=== PATIENT | male | born 1990 | race African-American/Black ===

== ENCOUNTER 2018-10-03 22:33 | Emergency (ER) | payer MEDICAID, OTHER ==
[~2018-10-03] VITALS: Ht 180.3 cm; Wt 74.0 kg
[2018-10-04] MEDS ORDERED: RISPERIDONE 1MG TABLET PO STA (02:49)
[2018-10-04] MEDS ORDERED: BACITRACIN 15GM TUBE TOP ONE (03:00)
[2018-10-04 03:19] LABS: BASOPHILS % 0.5 % (0.0-2.0); EOSINOPHILS % 3.2 % (0.0-5.0); HEMATOCRIT. 38.9 % (42.0-52.0); HEMOGLOBIN. 12.7 g/dL (14.0-18.0); LYMPHOCYTES % 27.2 % (20.0-50.0); MEAN CORPUSCULAR HEMOGLOBIN 26.2 pg (28.0-32.0); MEAN CORPUSCULAR VOLUME 80.5 fL (80.0-94.0); MEAN PLATELET VOLUME 7.7 fl (7.4-10.4); MONOCYTES % 11.6 % (2.0-8.0); NEUTROPHILS % 57.5 % (40.0-76.0); PLATELET 318 x1000/uL (130-400); RED BLOOD CELL COUNT 4.84 mill/uL (4.7-6.1); RED CELL DISTRIBUTION WIDTH 14.9 % (11.6-14.6)
[2018-10-04 03:30] LABS: CHLORIDE 103 mEq/L (98-107)
[2018-10-04 03:34] LABS: ETHANOL BLOOD < 10 mg/dL
[2018-10-04 04:06] LABS: CLARITY URINE CLEAR (CLEAR); COLOR URINE YELLOW (YELLOW); KETONES URINE NEGATIVE (NEGATIVE); LEUKOCYTE ESTERASE URINE NEGATIVE (NEGATIVE); NITRITE URINE NEGATIVE (NEGATIVE); OCCULT BLOOD URINE NEGATIVE (NEGATIVE); PH URINE 6.5 (4.5-8.0); PROTEIN URINE NEGATIVE (NEGATIVE); SPECIFIC GRAVITY URINE 1.026 (1.005-1.030)
[2018-10-04 04:15] LABS: *AMPHETAMINES SCREEN URINE PRESUMTIVE POSITIVE (NEGATIVE); *BARBITURATES SCREEN URINE NEGATIVE (NEGATIVE); *BENZODIAZEPINES SCREEN URINE NEGATIVE (NEGATIVE); *COCAINE SCREEN URINE NEGATIVE (NEGATIVE)
[2018-10-04 04:16] LABS: CANNABINOID URINE SCREEN NEGATIVE (NEGATIVE); METHADONE URINE SCREEN NEGATIVE (NEGATIVE); OPIATES URINE SCREEN PRESUMTIVE POSITIVE (NEGATIVE); PHENCYCLIDINE URINE SCREEN NEGATIVE (NEGATIVE)
[2018-10-04 15:07] VITALS: BP 122/76
== END 2018-10-04 15:09 | disposition home or self-care (01) ==
LOC: ER 22:33
DX: S61.512A Laceration without foreign body of left wrist, initial encounter (principal); S60.812A Abrasion of left wrist, initial encounter; F15.129 Other stimulant abuse with intoxication, unspecified; F11.129 Opioid abuse with intoxication, unspecified; F20.9 Schizophrenia, unspecified; F12.10 Cannabis abuse, uncomplicated; Z91.14 Patient's other noncompliance with medication regimen; X83.8XXA Intentional self-harm by other specified means, initial encounter; Y93.89 Activity, other specified; Y92.018 Other place in single-family (private) house as the place of occurrence of the external cause
CPT/HCPCS: 36415; 80305; 80307; 80329; 99284

== ENCOUNTER 2018-11-17 04:24 | Emergency (ER) | payer MEDICAID ==
[~2018-11-17] VITALS: Ht 180.3 cm; Wt 74.7 kg
[2018-11-17 05:02] VITALS: BP 137/88
== END 2018-11-17 09:36 | disposition left against medical advice (07) ==
LOC: ER 04:24
DX: Z53.21 Procedure and treatment not carried out due to patient leaving prior to being seen by health care provider (principal)

== ENCOUNTER 2018-11-18 20:58 | Emergency (ER) | payer MEDICAID ==
[~2018-11-18] VITALS: Ht 180.3 cm; Wt 74.0 kg
[2018-11-19] MEDS ORDERED: BACITRACIN ZINC OINT UDPKT TOP ONE
[2018-11-19] MEDS ORDERED: IBUPROFEN 600MG TABLET PO ONE
[2018-11-19] MEDS ORDERED: LIDOCAINE 1%/EPI 1:100,000 10 ML VIAL IJ ONE
[2018-11-19] MEDS ORDERED: CEPHALEXIN 250MG CAPSULE PO ONE (00:45)
[2018-11-19] MEDS ORDERED: SULFAMETHOXAZOLE/TRIMETHOPRIM 800/160MG TABLET PO ONE (00:45)
[2018-11-19 01:01] VITALS: BP 124/68
== END 2018-11-19 01:02 | disposition home or self-care (01) ==
LOC: ER 20:58
DX: L02.413 Cutaneous abscess of right upper limb (principal); F11.10 Opioid abuse, uncomplicated; F17.210 Nicotine dependence, cigarettes, uncomplicated
CPT/HCPCS: 10060; 99284; J3490

== ENCOUNTER 2019-06-21 18:51 | Emergency (ER) | payer MEDICAID ==
[~2019-06-21] VITALS: Ht 175.3 cm; Wt 73.0 kg
[2019-06-21] MEDS ORDERED: TETANUS, DIPHTHERIA, PERTUSSIS VAC/PF 0.5ML (>7YR OLD) IM ONE (19:15)
[2019-06-21] MEDS ORDERED: BACITRACIN ZINC OINT UDPKT TOP ONE (19:15)
[2019-06-21] MEDS ORDERED: LIDOCAINE HCL/PF 1% 10 MG/ML 5ML VIAL IJ ONE (19:15)
[2019-06-21] MEDS ORDERED: CEFAZOLIN 1000MG PREMIX 50 ML IV ONE (20:30)
[2019-06-21 21:30] LABS: CLARITY URINE CLEAR (CLEAR); COLOR URINE DARK YELLOW (YELLOW); KETONES URINE TRACE (NEGATIVE); LEUKOCYTE ESTERASE URINE NEGATIVE (NEGATIVE); NITRITE URINE NEGATIVE (NEGATIVE); OCCULT BLOOD URINE NEGATIVE (NEGATIVE); PH URINE 5.5 (4.5-8.0); PROTEIN URINE NEGATIVE (NEGATIVE)
[2019-06-21 21:45] LABS: *AMPHETAMINES SCREEN URINE NEGATIVE (NEGATIVE); *BARBITURATES SCREEN URINE NEGATIVE (NEGATIVE); *BENZODIAZEPINES SCREEN URINE NEGATIVE (NEGATIVE); *COCAINE SCREEN URINE NEGATIVE (NEGATIVE); CANNABINOID URINE SCREEN NEGATIVE (NEGATIVE); METHADONE URINE SCREEN PRESUMTIVE POSITIVE (NEGATIVE)
[2019-06-21 21:46] LABS: OPIATES URINE SCREEN NEGATIVE (NEGATIVE); PHENCYCLIDINE URINE SCREEN NEGATIVE (NEGATIVE)
[2019-06-21 21:53] LABS: BASOPHILS % 0.3 % (0.0-2.0); EOSINOPHILS % 2.1 % (0.0-5.0); HEMATOCRIT. 39.1 % (42.0-52.0); HEMOGLOBIN. 12.8 g/dL (14.0-18.0); LYMPHOCYTES % 33.5 % (20.0-50.0); MEAN CORPUSCULAR HEMOGLOBIN 26.2 pg (28.0-32.0); MEAN PLATELET VOLUME 8.1 fl (7.4-10.4); MONOCYTES % 7.7 % (2.0-8.0); NEUTROPHILS % 56.4 % (40.0-76.0); PLATELET 206 x1000/uL (130-400); RED BLOOD CELL COUNT 4.89 mill/uL (4.7-6.1); RED CELL DISTRIBUTION WIDTH 18.3 % (11.6-14.6)
[2019-06-21 21:56] LABS: CHLORIDE 109 mEq/L (98-107)
[2019-06-21 22:03] LABS: ETHANOL BLOOD < 10 mg/dL
[2019-06-21] MEDS ORDERED: CEPHALEXIN 250MG CAPSULE PO ONE (22:15)
[2019-06-21] MEDS ORDERED: LORAZEPAM 1MG TABLET PO ONE (22:15)
[2019-06-22 13:00] VITALS: BP 113/85
== END 2019-06-22 13:00 | disposition home or self-care (01) ==
LOC: ER 18:51
DX: S51.812A Laceration without foreign body of left forearm, initial encounter (principal); F32.9 Major depressive disorder, single episode, unspecified; Z59.0 Homelessness; X78.8XXA Intentional self-harm by other sharp object, initial encounter; Y93.89 Activity, other specified; Y92.488 Other paved roadways as the place of occurrence of the external cause
CPT/HCPCS: 12005; 36415; 80053; 80305; 80307; 80320; 80329; 81003; 84443; 85025; 90471; 90715; 99284; J0690; J3490; Z7610; G0480

== ENCOUNTER 2019-11-16 08:07 | Emergency (ER) | payer MEDICAID ==
[~2019-11-16] VITALS: Ht 175.3 cm; Wt 80.0 kg
[2019-11-16] MEDS ORDERED: TETANUS, DIPHTHERIA, PERTUSSIS VAC/PF 0.5ML (>7YR OLD) IM ONE (08:45)
[2019-11-16] MEDS ORDERED: LIDOCAINE 1%/EPI 1:100,000 10 ML VIAL IJ ONE (08:45)
[2019-11-16] MEDS ORDERED: LIDOCAINE HCL/PF 1% 10 MG/ML 5ML VIAL IJ ONE (08:45)
[2019-11-16] MEDS ORDERED: BACITRACIN ZINC OINT UDPKT TOP ONE (08:45)
[2019-11-16 09:15] LABS: BASOPHILS % 0.4 % (0.0-2.0); EOSINOPHILS % 2.6 % (0.0-5.0); HEMATOCRIT. 35.2 % (42.0-52.0); HEMOGLOBIN. 11.7 g/dL (14.0-18.0); LYMPHOCYTES % 20.7 % (20.0-50.0); MEAN CORPUSCULAR HEMOGLOBIN 26.3 pg (28.0-32.0); MEAN CORPUSCULAR VOLUME 79.2 fL (80.0-94.0); MEAN PLATELET VOLUME 7.4 fl (7.4-10.4); MONOCYTES % 7.7 % (2.0-8.0); NEUTROPHILS % 68.6 % (40.0-76.0); PLATELET 306 x1000/uL (130-400); RED BLOOD CELL COUNT 4.45 mill/uL (4.7-6.1); RED CELL DISTRIBUTION WIDTH 15.9 % (11.6-14.6)
[2019-11-16 09:22] LABS: CHLORIDE 106 mEq/L (98-107)
[2019-11-16 09:26] LABS: ETHANOL BLOOD < 10 mg/dL
[2019-11-16] MEDS ORDERED: LORAZEPAM 1MG TABLET PO ONE ×2 (11:00→23:15)
[2019-11-16 12:06] LABS: CLARITY URINE CLEAR (CLEAR); COLOR URINE DK YELLOW (YELLOW); KETONES URINE 2+ (NEGATIVE); LEUKOCYTE ESTERASE URINE NEGATIVE (NEGATIVE); NITRITE URINE NEGATIVE (NEGATIVE); OCCULT BLOOD URINE NEGATIVE (NEGATIVE); PH URINE 6.5 (4.5-8.0); PROTEIN URINE TRACE (NEGATIVE); SPECIFIC GRAVITY URINE 1.035 (1.005-1.030)
[2019-11-16 12:24] LABS: *AMPHETAMINES SCREEN URINE PRESUMTIVE POSITIVE (NEGATIVE); *BARBITURATES SCREEN URINE NEGATIVE (NEGATIVE); *BENZODIAZEPINES SCREEN URINE NEGATIVE (NEGATIVE); *COCAINE SCREEN URINE NEGATIVE (NEGATIVE)
[2019-11-16 12:25] LABS: CANNABINOID URINE SCREEN NEGATIVE (NEGATIVE); METHADONE URINE SCREEN PRESUMTIVE POSITIVE (NEGATIVE); OPIATES URINE SCREEN PRESUMTIVE POSITIVE (NEGATIVE); PHENCYCLIDINE URINE SCREEN NEGATIVE (NEGATIVE)
[2019-11-16] MEDS ORDERED: CHLORDIAZEPOXIDE 25MG CAPSULE PO ONE (19:15)
[2019-11-17] MEDS ORDERED: LORAZEPAM 1MG TABLET PO ONE ×2 (09:00→22:15)
[2019-11-17] MEDS: LORAZEPAM 2MG/ML CPJ IM PRN ×2 (13:50→14:00)
[2019-11-18] MEDS ORDERED: LORAZEPAM 1MG TABLET PO SCH (09:00)
[2019-11-18] MEDS ORDERED: LORAZEPAM 2MG/ML CPJ IM ONE (11:45)
[2019-11-18] MEDS ORDERED: METHADONE HCL 10MG TABLET PO SCH ×2 (12:00→13:00)
[2019-11-19] MEDS: METHADONE HCL 5MG TABLET PO SCH (09:21)
[2019-11-19] MEDS: METHADONE HCL 10MG TABLET PO SCH (09:21)
[2019-11-19] MEDS ORDERED: LORAZEPAM 2MG/ML CPJ IM ONE (17:15)
[2019-11-19] MEDS ORDERED: CEPHALEXIN 250MG CAPSULE PO SCH ×2 (21:00→21:06)
[2019-11-19] MEDS ORDERED: BACITRACIN 15GM TUBE TOP ONE (21:00)
[2019-11-20] MEDS: METHADONE HCL 10MG TABLET PO SCH (10:50)
[2019-11-20] MEDS: METHADONE HCL 5MG TABLET PO SCH (10:51)
[2019-11-20 17:55] VITALS: BP 101/56
== END 2019-11-20 17:55 | disposition home or self-care (01) ==
LOC: ER 08:07
DX: S51.812A Laceration without foreign body of left forearm, initial encounter (principal); S51.811A Laceration without foreign body of right forearm, initial encounter; F15.10 Other stimulant abuse, uncomplicated; F11.10 Opioid abuse, uncomplicated; F32.9 Major depressive disorder, single episode, unspecified; F17.210 Nicotine dependence, cigarettes, uncomplicated; Z75.1 Person awaiting admission to adequate facility elsewhere; Z78.1 Physical restraint status; X99.8XXA Assault by other sharp object, initial encounter; Y93.89 Activity, other specified; Y92.018 Other place in single-family (private) house as the place of occurrence of the external cause
CPT/HCPCS: 36415; 80053; 80305; 80320; 81003; 85025; 90471; 90715; 96372; 99285; J2060; J3490; G0480

== ENCOUNTER 2023-07-20 15:32 | Emergency (ER) | payer MEDICAID, OTHER ==
[~2023-07-20] VITALS: Ht 182.9 cm; Wt 80.0 kg
[2023-07-20 15:40] VITALS: BP 131/95; PULSE 87; RESP 18; TEMP 98; O2SAT 98
[2023-07-20] MEDS ORDERED: MUPI15CR11 TP (18:20)
== END 2023-07-20 19:26 | disposition home or self-care (01) ==
LOC: ER 15:32
DX: R21 Rash and other nonspecific skin eruption (principal); F15.10 Other stimulant abuse, uncomplicated; F11.10 Opioid abuse, uncomplicated
CPT/HCPCS: 99283; Z7610

== ENCOUNTER 2024-04-15 22:51 | Emergency (ER) | payer MEDICAID, OTHER ==
[~2024-04-15] VITALS: Ht 182.9 cm; Wt 78.0 kg
[~2024-04-15 22:51] MED LIST: MUPI15CR11 TP
[2024-04-15 23:05] VITALS: O2SAT 95
[2024-04-15 23:09] VITALS: BP 121/89; PULSE 97; O2SAT 99
[2024-04-15 23:59] LABS: BASOPHILS % 0.7 % (0.0-2.0); EOSINOPHILS % 3.8 % (0.0-5.0); HEMATOCRIT. 25.2 % (42.0-52.0); HEMOGLOBIN. 7.9 g/dL (14.0-18.0); LYMPHOCYTES % 25.2 % (20.0-50.0); MEAN CORPUSCULAR HEMOGLOBIN 27.7 pg (28.0-32.0); MEAN CORPUSCULAR HGB CONC 31.5 g/dL (31.0-37.0); MEAN CORPUSCULAR VOLUME 87.7 fL (80.0-94.0); MEAN PLATELET VOLUME 6.3 fl (7.4-10.4); MONOCYTES % 9.6 % (2.0-8.0); NEUTROPHILS % 60.7 % (40.0-76.0); PLATELET 503 x1000/uL (130-400); RED BLOOD CELL COUNT 2.87 mill/uL (4.7-6.1); RED CELL DISTRIBUTION WIDTH 17.3 % (11.6-14.6); WHITE BLOOD COUNT 13.1 x1000/uL (4.5-11.0)
[2024-04-16 00:04] LABS: CARBON DIOXIDE 23 mEq/L (21-32); CHLORIDE 108 mEq/L (98-107); POTASSIUM 4.7 mEq/L (3.5-5.1); SODIUM 138 mEq/L (136-145)
[2024-04-16 00:05] LABS: CALCIUM 8.1 mg/dL (8.7-10.4)
[2024-04-16 00:10] LABS: GLUCOSE 120 mg/dL (70-105); UREA NITROGEN BLOOD 48 mg/dL (9-23)
[2024-04-16 00:12] LABS: PHOSPHORUS 6.4 mg/dL (2.5-4.9)
[2024-04-16 00:14] LABS: CREATININE 5.8 mg/dL (0.6-1.3)
[2024-04-16] MEDS: CEFTRIAXONE 1GM/50ML 50 ML IV ONE (00:45)
[2024-04-16 05:11] VITALS: RESP 16; TEMP 98.4
== END 2024-04-16 05:28 | disposition left against medical advice (07) ==
LOC: ER 22:51 → EDBEDREQSVC 04-16 03:45 → EDBEDREQ 04-16 03:45 → CMPBEDREQ 04-16 05:24 → ER 04-16 05:28
DX: T82.42XA Displacement of vascular dialysis catheter, initial encounter (principal); N18.6 End stage renal disease; F32.A Depression, unspecified; Z98.890 Other specified postprocedural states; F15.90 Other stimulant use, unspecified, uncomplicated; F12.90 Cannabis use, unspecified, uncomplicated; Y92.89 Other specified places as the place of occurrence of the external cause
CPT/HCPCS: 36415; 51702; 71045; 80048; 83735; 84100; 84145; 85025; 93005; 96365; 99285; J0696

== ENCOUNTER 2024-07-19 13:59 | Inpatient (IN) | payer MEDICAID ==
[~2024-07-19] VITALS: Ht 182.9 cm; Wt 78.0 kg
[2024-07-19 14:33] LABS: BASOPHILS % 0.4 % (0.0-2.0); DIFFERENTIAL COMMENT 0; EOSINOPHILS % 2.6 % (0.0-5.0); LYMPHOCYTES % 19.4 % (20.0-50.0); MEAN CORPUSCULAR HEMOGLOBIN 25.7 pg (28.0-32.0); MEAN CORPUSCULAR HGB CONC 31.6 g/dL (31.0-37.0); MEAN CORPUSCULAR VOLUME 81.4 fL (80.0-94.0); MEAN PLATELET VOLUME 6.6 fl (7.4-10.4); MONOCYTES % 5.6 % (2.0-8.0); PLATELET 428 x1000/uL (130-400); RED BLOOD CELL COUNT 2.66 mill/uL (4.7-6.1); RED CELL DISTRIBUTION WIDTH 18.7 % (11.6-14.6); WHITE BLOOD COUNT 11.5 x1000/uL (4.5-11.0)
[2024-07-19 14:39] LABS: CHLORIDE 111 mEq/L (98-107); POTASSIUM 5.7 mEq/L (3.5-5.1); SODIUM 138 mEq/L (136-145)
[2024-07-19 14:40] LABS: CARBON DIOXIDE 14 mEq/L (21-32)
[2024-07-19 14:41] LABS: CALCIUM 7.1 mg/dL (8.7-10.4); HEMATOCRIT. 21.7 % (42.0-52.0); HEMOGLOBIN. 6.9 g/dL (14.0-18.0)
[2024-07-19 14:45] LABS: GLUCOSE 87 mg/dL (70-105); UREA NITROGEN BLOOD 100 mg/dL (9-23)
[2024-07-19] MEDS ORDERED: INSULIN REGULAR (HUMULIN R) 1000UNITS/10ML VIAL IV ONE (14:45)
[2024-07-19] MEDS ORDERED: CALCIUM GLUCONATE 1,000 MG in DEXT 5% WATER 100 ML IV ONE (14:45)
[2024-07-19] MEDS ORDERED: SODIUM BICARBONATE 8.4% 50MEQ/50ML SYR IV ONE (14:45)
[2024-07-19] MEDS ORDERED: DEXTROSE 50% WATER 50ML SYRINGE IV ONE (14:45)
[2024-07-19 14:46] LABS: TROPONIN I HIGH SENSITIVITY 8 ng/L (3.0-53)
[2024-07-19 14:47] LABS: ALANINE AMINOTRANSFERASE 9 IU/L (10-49); ALBUMIN 2.7 g/dL (3.2-4.8); ASPARTATE AMINOTRANSFERASE 11 IU/L (<34)
[2024-07-19 14:48] LABS: BILIRUBIN TOTAL < 0.2 mg/dL (0.1-1.0); PROTEIN TOTAL 5.6 g/dL (6.0-8.3)
[2024-07-19 14:49] LABS: PROTHROMBIN TIME 11.1 sec (9.6-11.0)
[2024-07-19 14:57] LABS: BILIRUBIN DIRECT < 0.1 mg/dL (<=3.0); CREATININE 14.5 mg/dL (0.6-1.3)
[2024-07-19] MEDS ORDERED: ALBUTEROL (0.083%) 2.5MG/3ML NEB HHN SCH (15:00)
[2024-07-19 15:34] LABS: CLARITY URINE CLEAR (CLEAR); COLOR URINE YELLOW (YELLOW); GLUCOSE URINE 1+ (NEGATIVE); KETONES URINE TRACE (NEGATIVE); LEUKOCYTE ESTERASE URINE NEGATIVE (NEGATIVE); NITRITE URINE NEGATIVE (NEGATIVE); OCCULT BLOOD URINE TRACE (NEGATIVE); PH URINE 6.5 (4.5-8.0); PROTEIN URINE 4+ (NEGATIVE); SPECIFIC GRAVITY URINE 1.028 (1.005-1.030); UROBILINOGEN URINE 0.2 E.U./dL (0.2-1.0)
[2024-07-19 16:01] LABS: BACTERIA URINE 2+; SQUAMOUS EPITHELIAL CELL URINE FEW /lpf (RARE/1+)
[2024-07-19] MEDS: INSULIN REGULAR (HUMULIN R) 1000UNITS/10ML VIAL IV NR (16:45)
[2024-07-19] MEDS: DEXTROSE 50% WATER 50ML SYRINGE IV NR (16:53)
[2024-07-19] MEDS: SODIUM BICARBONATE 8.4% 50MEQ/50ML SYR IV NR (16:53)
[2024-07-19] MEDS: ALBUTEROL (0.083%) 2.5MG/3ML NEB HHN SCH (16:53)
[2024-07-19] MEDS: CALCIUM GLUCONATE 1GM PREMIX 50 ML IV SCH (16:57)
[2024-07-19 17:45] VITALS: PULSE 84; RESP 20; O2SAT 98
[2024-07-19 18:50] VITALS: BP 151/81; PULSE 86; RESP 20; TEMP 37.11408; O2SAT 99
[2024-07-19 20:00] VITALS: BP 158/101; PULSE 89; RESP 18; RESP 20; TEMP 36.22512; TEMP 36.2512; O2SAT 100
[2024-07-19] MEDS: ACETAMINOPHEN 650MG/20.3ML UDC PO PRN (20:34)
[2024-07-20] VITALS (16 sets, daily range): BP systolic 133–169; BP diastolic 79–108; PULSE 67–85; RESP 18–21; TEMP 36.33624–36.78072; O2SAT 98–100
[2024-07-20] MEDS: ACETAMINOPHEN 325MG TABLET PO PRN (06:05)
[2024-07-20] MEDS ORDERED: NALOXONE HCL 0.4MG/ML VIAL IV PRN (12:00)
[2024-07-20] MEDS: METHADONE HCL 10MG TABLET PO SCH (12:25)
[2024-07-20] MEDS: QUETIAPINE FUMARATE 50MG TABLET PO SCH (20:45)
[2024-07-20 22:02] LABS: CALCIUM 7.3 mg/dL (8.7-10.4); CARBON DIOXIDE 21 mEq/L (21-32); CHLORIDE 104 mEq/L (98-107); POTASSIUM 5.6 mEq/L (3.5-5.1); SODIUM 134 mEq/L (136-145)
[2024-07-20 22:08] LABS: GLUCOSE 98 mg/dL (70-105); IRON 54 ug/dL (65-175); TRIGLYCERIDE 96 mg/dL (0-150); UREA NITROGEN BLOOD 64 mg/dL (9-23)
[2024-07-20 22:09] LABS: LDL CHOLESTEROL 115 mg/dL (5-100)
[2024-07-20 22:10] LABS: CHOLESTEROL 200 mg/dL (<200); HDL CHOLESTEROL 56 mg/dL (>55); PHOSPHORUS 7.8 mg/dL (2.5-4.9)
[2024-07-20 22:11] LABS: TOTAL IRON BINDING CAPACITY 491 ug/dl (250-425)
[2024-07-20 22:24] LABS: BASOPHILS % 0.7 % (0.0-2.0); EOSINOPHILS % 3.8 % (0.0-5.0); LYMPHOCYTES % 22.1 % (20.0-50.0); MEAN CORPUSCULAR HEMOGLOBIN 25.4 pg (28.0-32.0); MEAN CORPUSCULAR HGB CONC 31.3 g/dL (31.0-37.0); MEAN CORPUSCULAR VOLUME 81.2 fL (80.0-94.0); MEAN PLATELET VOLUME 6.7 fl (7.4-10.4); MONOCYTES % 6.9 % (2.0-8.0); NEUTROPHILS % 66.5 % (40.0-76.0); PLATELET 363 x1000/uL (130-400); RED BLOOD CELL COUNT 2.75 mill/uL (4.7-6.1); RED CELL DISTRIBUTION WIDTH 19.5 % (11.6-14.6); WHITE BLOOD COUNT 9.8 x1000/uL (4.5-11.0)
[2024-07-20 22:39] LABS: HEMATOCRIT. 22.3 % (42.0-52.0)
[2024-07-20 22:46] LABS: CREATININE 9.8 mg/dL (0.6-1.3)
[2024-07-20] MEDS ORDERED: SODIUM POLYSTYRENE SULFONATE 15 G/60 ML BOT PO ONE (23:00)
[2024-07-20] MEDS: SODIUM ZIRCONIUM CYCLOSILICATE 10GM/PACKET PO NR (23:17)
[2024-07-21] VITALS (12 sets, daily range): BP systolic 125–158; BP diastolic 84–115; PULSE 70–92; RESP 18–20; TEMP 35.5584–37.11408; O2SAT 96–100
[2024-07-21 18:36] LABS: DIFFERENTIAL COMMENT 0; EOSINOPHILS % 4.7 % (0.0-5.0); LYMPHOCYTES % 27.4 % (20.0-50.0); MEAN CORPUSCULAR HEMOGLOBIN 26.2 pg (28.0-32.0); MEAN CORPUSCULAR HGB CONC 32.7 g/dL (31.0-37.0); MEAN CORPUSCULAR VOLUME 80.2 fL (80.0-94.0); MEAN PLATELET VOLUME 6.9 fl (7.4-10.4); MONOCYTES % 6.7 % (2.0-8.0); NEUTROPHILS % 60.2 % (40.0-76.0); PLATELET 387 x1000/uL (130-400); RED CELL DISTRIBUTION WIDTH 19.4 % (11.6-14.6)
[2024-07-21 19:02] LABS: POTASSIUM 3.5 mEq/L (3.5-5.1)
[2024-07-21 19:03] LABS: CALCIUM 7.5 mg/dL (8.7-10.4)
[2024-07-21 19:13] LABS: CREATININE 5.9 mg/dL (0.6-1.3)
[2024-07-21 19:23] LABS: HEPATITIS B SURFACE ANTIGEN NEGATIVE (Negative)
[2024-07-21 19:44] LABS: HEPATITIS A AB IGM NEGATIVE (Negative)
[2024-07-21 19:45] LABS: HEMATOCRIT. 20.9 % (42.0-52.0); HEMOGLOBIN. 6.8 g/dL (14.0-18.0); HEPATITIS B CORE AB IGM NEGATIVE (Negative); HEPATITIS C AB REACTIVE (Pos) (Negative)
[2024-07-21] MEDS: EPOETIN ALFA-EPBX 4,000 UNIT/ML VIAL SUBCUT SCH (21:49)
[2024-07-22] VITALS: BP 127/81; PULSE 89; RESP 20; TEMP 37.00296; O2SAT 97
[2024-07-22 04:00] VITALS: BP 119/77; PULSE 80; RESP 20; TEMP 37.00296; O2SAT 97
[2024-07-22 08:00] VITALS: BP 127/78; PULSE 77; RESP 18; TEMP 36.72516; O2SAT 98
[2024-07-22 11:40] LABS: BASOPHILS % 0.7 % (0.0-2.0); DIFFERENTIAL COMMENT 0; EOSINOPHILS % 3.7 % (0.0-5.0); LYMPHOCYTES % 29.8 % (20.0-50.0); MEAN CORPUSCULAR HEMOGLOBIN 25.5 pg (28.0-32.0); MEAN CORPUSCULAR VOLUME 82.5 fL (80.0-94.0); MEAN PLATELET VOLUME 6.9 fl (7.4-10.4); MONOCYTES % 7.8 % (2.0-8.0); PLATELET 340 x1000/uL (130-400); RED BLOOD CELL COUNT 2.41 mill/uL (4.7-6.1); RED CELL DISTRIBUTION WIDTH 19.5 % (11.6-14.6); WHITE BLOOD COUNT 9.3 x1000/uL (4.5-11.0)
[2024-07-22 11:50] LABS: HEMATOCRIT. 19.9 % (42.0-52.0); HEMOGLOBIN. 6.1 g/dL (14.0-18.0); POTASSIUM 4.6 mEq/L (3.5-5.1)
[2024-07-22 11:51] LABS: CALCIUM 6.9 mg/dL (8.7-10.4)
[2024-07-22 12:00] VITALS: BP 130/85; PULSE 76; RESP 18; TEMP 36.55848; O2SAT 99
[2024-07-22 12:56] LABS: CREATININE 8.6 mg/dL (0.6-1.3)
[2024-07-22 16:00] VITALS: BP 126/88; PULSE 78; RESP 18; TEMP 36.61404; O2SAT 98
[2024-07-22 16:50] LABS: POTASSIUM 4.7 mEq/L (3.5-5.1)
[2024-07-22 16:51] LABS: CALCIUM 6.9 mg/dL (8.7-10.4)
[2024-07-22 17:03] LABS: CREATININE 8.7 mg/dL (0.6-1.3)
[2024-07-22 20:00] VITALS: BP 153/103; PULSE 87; RESP 18; TEMP 38.22528; O2SAT 96
[2024-07-22] MEDS: ATORVASTATIN CALCIUM 20MG TABLET PO SCH (21:15)
[2024-07-22] MEDS: QUETIAPINE FUMARATE 50MG TABLET PO SCH (21:15)
[2024-07-23] VITALS (12 sets, daily range): BP systolic 121–152; BP diastolic 82–100; PULSE 70–84; RESP 17–19; TEMP 36.3918–38.6142; O2SAT 96–99
[2024-07-23] MEDS: METHADONE HCL 10MG TABLET PO SCH (08:34)
[2024-07-23] MEDS: METHADONE HCL 5MG TABLET PO SCH (08:35)
[2024-07-23] MEDS: CITALOPRAM HYDROBROMIDE 10MG TABLET PO SCH (08:35)
[2024-07-23 13:43] LABS: PROTHROMBIN TIME 11.1 sec (9.6-11.0)
[2024-07-23 13:44] LABS: BASOPHILS % 0.6 % (0.0-2.0); DIFFERENTIAL COMMENT 0; EOSINOPHILS % 4.1 % (0.0-5.0); LYMPHOCYTES % 27.5 % (20.0-50.0); MEAN CORPUSCULAR HEMOGLOBIN 26.4 pg (28.0-32.0); MEAN CORPUSCULAR HGB CONC 31.4 g/dL (31.0-37.0); MEAN CORPUSCULAR VOLUME 84.1 fL (80.0-94.0); MEAN PLATELET VOLUME 6.8 fl (7.4-10.4); MONOCYTES % 9.6 % (2.0-8.0); NEUTROPHILS % 58.2 % (40.0-76.0); PLATELET 322 x1000/uL (130-400); RED BLOOD CELL COUNT 2.26 mill/uL (4.7-6.1); RED CELL DISTRIBUTION WIDTH 19.4 % (11.6-14.6); WHITE BLOOD COUNT 9.5 x1000/uL (4.5-11.0)
[2024-07-23 13:50] LABS: POTASSIUM 5.1 mEq/L (3.5-5.1)
[2024-07-23 13:51] LABS: CALCIUM 7.4 mg/dL (8.7-10.4)
[2024-07-23 15:32] LABS: CREATININE 9.8 mg/dL (0.6-1.3)
[2024-07-23 20:23] LABS: ALANINE AMINOTRANSFERASE 12 IU/L (10-49); ALBUMIN 2.6 g/dL (3.2-4.8); ASPARTATE AMINOTRANSFERASE 18 IU/L (<34)
[2024-07-23 20:24] LABS: BILIRUBIN TOTAL < 0.2 mg/dL (0.1-1.0); PHOSPHORUS 7.5 mg/dL (2.5-4.9); PROTEIN TOTAL 5.1 g/dL (6.0-8.3)
[2024-07-23 20:30] LABS: BILIRUBIN DIRECT < 0.1 mg/dL (<=3.0)
[2024-07-24] VITALS: BP 131/80; PULSE 76; RESP 17; TEMP 38.16972; O2SAT 98
[2024-07-24 04:00] VITALS: BP 155/104; PULSE 69; RESP 18; TEMP 36.89184; O2SAT 98
[2024-07-24 08:00] VITALS: BP 152/91; PULSE 74; RESP 18; TEMP 36.61404; O2SAT 100
[2024-07-24] MEDS: ONDANSETRON HCL 4MG/2ML INJ IV PRN (08:09)
[2024-07-24] MEDS: SEVELAMER CARBONATE 800 MG TABLET PO SCH (08:09)
[2024-07-24 12:00] VITALS: BP 136/96; PULSE 72; RESP 18; TEMP 36.44736; O2SAT 99
[2024-07-24] MEDS: FERROUS SULFATE 325MG TABLET PO SCH (12:36)
[2024-07-24 16:00] VITALS: BP 127/91; PULSE 74; RESP 18; TEMP 36.44736; O2SAT 99
[2024-07-24 19:26] LABS: POTASSIUM 5.2 mEq/L (3.5-5.1)
[2024-07-24 19:28] LABS: BASOPHILS % 0.8 % (0.0-2.0); CALCIUM 7.4 mg/dL (8.7-10.4); DIFFERENTIAL COMMENT 0; EOSINOPHILS % 3.7 % (0.0-5.0); LYMPHOCYTES % 25.4 % (20.0-50.0); MEAN CORPUSCULAR HEMOGLOBIN 26.8 pg (28.0-32.0); MEAN CORPUSCULAR HGB CONC 32.5 g/dL (31.0-37.0); MEAN CORPUSCULAR VOLUME 82.4 fL (80.0-94.0); MEAN PLATELET VOLUME 7.4 fl (7.4-10.4); MONOCYTES % 7.9 % (2.0-8.0); NEUTROPHILS % 62.2 % (40.0-76.0); PLATELET 327 x1000/uL (130-400); RED CELL DISTRIBUTION WIDTH 19.5 % (11.6-14.6)
[2024-07-24 19:34] LABS: CREATININE 7.8 mg/dL (0.6-1.3)
[2024-07-24 19:48] LABS: HEMATOCRIT. 18.1 % (42.0-52.0); HEMOGLOBIN. 5.9 g/dL (14.0-18.0)
[2024-07-24 20:00] VITALS: BP 138/84; PULSE 80; RESP 20; TEMP 36.6696; O2SAT 95
[2024-07-25] VITALS (10 sets, daily range): BP systolic 121–148; BP diastolic 78–97; PULSE 66–88; RESP 18–20; TEMP 36.44736–37.16964; O2SAT 95–98
[2024-07-25] MEDS: DIPHENHYDRAMINE 25MG CAPSULE PO PRN (02:11)
[2024-07-25] MEDS: CITALOPRAM HYDROBROMIDE 10MG TABLET PO SCH (10:14)
[2024-07-25 13:03] LABS: BASOPHILS % 0.6 % (0.0-2.0); DIFFERENTIAL COMMENT 0; EOSINOPHILS % 4.1 % (0.0-5.0); MEAN CORPUSCULAR HEMOGLOBIN 26.5 pg (28.0-32.0); MEAN CORPUSCULAR HGB CONC 31.9 g/dL (31.0-37.0); MEAN CORPUSCULAR VOLUME 83.3 fL (80.0-94.0); MEAN PLATELET VOLUME 6.8 fl (7.4-10.4); MONOCYTES % 2.9 % (2.0-8.0); NEUTROPHILS % 81.4 % (40.0-76.0); PLATELET 353 x1000/uL (130-400); RED BLOOD CELL COUNT 2.29 mill/uL (4.7-6.1); RED CELL DISTRIBUTION WIDTH 19.4 % (11.6-14.6); WHITE BLOOD COUNT 9.3 x1000/uL (4.5-11.0)
[2024-07-25 13:09] LABS: POTASSIUM 4.1 mEq/L (3.5-5.1)
[2024-07-25 13:10] LABS: CALCIUM 7.5 mg/dL (8.7-10.4)
[2024-07-25 13:31] LABS: HEMATOCRIT. 19.1 % (42.0-52.0); HEMOGLOBIN. 6.1 g/dL (14.0-18.0)
[2024-07-25 13:35] LABS: CREATININE 6.9 mg/dL (0.6-1.3)
[2024-07-25] MEDS ORDERED: NALOXONE HCL 0.4MG/ML VIAL IV PRN (15:15)
[2024-07-26] VITALS: BP 140/82; PULSE 72; RESP 18; TEMP 37.00296; O2SAT 96
[2024-07-26 04:00] VITALS: BP 142/80; PULSE 74; RESP 19; TEMP 37.11408; O2SAT 95
[2024-07-26 08:00] VITALS: BP 142/89; PULSE 90; RESP 20; TEMP 36.50292; O2SAT 97
[2024-07-26 11:05] LABS: BASOPHILS % 0.8 % (0.0-2.0); DIFFERENTIAL COMMENT 0; EOSINOPHILS % 5.1 % (0.0-5.0); LYMPHOCYTES % 29.4 % (20.0-50.0); MEAN CORPUSCULAR HEMOGLOBIN 26.5 pg (28.0-32.0); MEAN CORPUSCULAR HGB CONC 32.2 g/dL (31.0-37.0); MEAN CORPUSCULAR VOLUME 82.3 fL (80.0-94.0); MEAN PLATELET VOLUME 6.4 fl (7.4-10.4); NEUTROPHILS % 54.7 % (40.0-76.0); PLATELET 367 x1000/uL (130-400); RED BLOOD CELL COUNT 2.25 mill/uL (4.7-6.1); WHITE BLOOD COUNT 8.2 x1000/uL (4.5-11.0)
[2024-07-26 11:25] LABS: HEMATOCRIT. 18.5 % (42.0-52.0)
[2024-07-26 11:27] LABS: POTASSIUM 4.7 mEq/L (3.5-5.1)
[2024-07-26 11:29] LABS: CALCIUM 7.6 mg/dL (8.7-10.4)
[2024-07-26 12:00] VITALS: BP 141/88; PULSE 78; RESP 20; TEMP 36.61404; O2SAT 98
[2024-07-26 12:32] LABS: CREATININE 8.3 mg/dL (0.6-1.3)
[2024-07-26 17:00] VITALS: BP 148/88; PULSE 87; RESP 20; TEMP 36.78072
[2024-07-26] MEDS: CLONIDINE 0.1MG TABLET PO PRN (17:12)
[2024-07-26 20:00] VITALS: BP 138/89; PULSE 70; RESP 20; TEMP 36.78072; O2SAT 98
[2024-07-27] VITALS (10 sets, daily range): BP systolic 114–152; BP diastolic 70–101; PULSE 67–87; RESP 17–20; TEMP 36.114–37.05852; O2SAT 95–98
[2024-07-28] VITALS (7 sets, daily range): BP systolic 137–153; BP diastolic 67–90; PULSE 68–108; RESP 16–19; TEMP 36.3918–36.72516; O2SAT 97–99
[2024-07-28] MEDS: POLYETHYLENE GLYCOL 3350 (17GM) 1 DOSE PACK PO SCH (06:55)
[2024-07-29] VITALS (7 sets, daily range): BP systolic 138–142; BP diastolic 70–102; PULSE 70–92; RESP 16–19; TEMP 36.61404–37.00296; O2SAT 98–99
[2024-07-29] MEDS: FOLIC ACID/VITAMIN B COMP W-C TABLET PO SCH (08:14)
[2024-07-29] MEDS: ALTEPLASE 2MG/VIAL ITC ONE (18:37)
[2024-07-30] VITALS (10 sets, daily range): BP systolic 129–141; BP diastolic 78–100; PULSE 72–82; RESP 16–18; TEMP 36.44736–36.89184; O2SAT 97–99
[2024-07-30] MEDS: METHADONE HCL 10MG TABLET PO SCH (13:46)
[2024-07-30] MEDS: METHADONE HCL 5MG TABLET PO SCH (13:47)
[2024-07-30 21:39] LABS: BASOPHILS % 1.6 % (0.0-2.0); EOSINOPHILS % 3.6 % (0.0-5.0); HEMATOCRIT. 27.4 % (42.0-52.0); HEMOGLOBIN. 8.6 g/dL (14.0-18.0); LYMPHOCYTES % 21.8 % (20.0-50.0); MEAN CORPUSCULAR HEMOGLOBIN 25.8 pg (28.0-32.0); MEAN CORPUSCULAR HGB CONC 31.2 g/dL (31.0-37.0); MEAN CORPUSCULAR VOLUME 82.7 fL (80.0-94.0); MONOCYTES % 7.6 % (2.0-8.0); NEUTROPHILS % 65.4 % (40.0-76.0); RED BLOOD CELL COUNT 3.32 mill/uL (4.7-6.1); RED CELL DISTRIBUTION WIDTH 18.9 % (11.6-14.6); WHITE BLOOD COUNT 13.2 x1000/uL (4.5-11.0)
[2024-07-30 21:55] LABS: DIFFERENTIAL COMMENT 1
[2024-07-30 23:04] LABS: MEAN PLATELET VOLUME 7.2 fl (7.4-10.4); PLATELET 476 x1000/uL (130-400)
[2024-07-31 20:00] VITALS: BP 128/81; PULSE 82; RESP 18; TEMP 36.05844; O2SAT 95
[2024-08-01] VITALS (10 sets, daily range): BP systolic 120–156; BP diastolic 77–110; PULSE 70–80; RESP 16–20; TEMP 36.16956–37.05852; O2SAT 96–99
[2024-08-01] MEDS ORDERED: ALTEPLASE 100MG/VIAL IV NR (20:00)
[2024-08-01] MEDS: ALTEPLASE 2MG/VIAL INJ NR (20:44)
[2024-08-02] VITALS (12 sets, daily range): BP systolic 131–169; BP diastolic 88–110; PULSE 73–94; RESP 15–18; TEMP 36.22512–37.66968; O2SAT 97–100
[2024-08-03] VITALS: BP 148/98; PULSE 89; RESP 18; TEMP 37.11408; O2SAT 98
[2024-08-03 04:00] VITALS: BP 154/107; PULSE 81; RESP 18; TEMP 37.11408; O2SAT 100
[2024-08-03 08:00] VITALS: BP 143/101; PULSE 76; RESP 20; TEMP 36.28068; O2SAT 98
[2024-08-03 12:00] VITALS: BP 139/91; PULSE 85; RESP 20; TEMP 36.61404; O2SAT 99
[2024-08-03 16:00] VITALS: BP 155/100; PULSE 111; RESP 20; TEMP 36.16956; O2SAT 99
[2024-08-03 20:00] VITALS: BP 158/114; PULSE 76; RESP 18; TEMP 37.28076; O2SAT 98
[2024-08-04] VITALS (14 sets, daily range): BP systolic 146–163; BP diastolic 96–114; PULSE 77–91; RESP 16–20; TEMP 36.22512–37.503; O2SAT 95–100
[2024-08-04] MEDS: NIFEDIPINE XL 60MG TAB PO SCH (21:30)
[2024-08-05 04:00] VITALS: BP 129/90; PULSE 97; RESP 20; TEMP 37.33632; O2SAT 96
[2024-08-05 08:00] VITALS: BP 116/76; PULSE 87; RESP 18; TEMP 36.72516; O2SAT 97
[2024-08-05] MEDS: METHADONE HCL 5MG TABLET PO SCH (09:24)
[2024-08-05] MEDS: METHADONE HCL 10MG TABLET PO SCH (09:24)
[2024-08-05 12:00] VITALS: BP 123/82; PULSE 94; RESP 18; TEMP 36.9474; O2SAT 95
[2024-08-05 16:00] VITALS: BP 119/68; PULSE 91; RESP 18; TEMP 36.89184; O2SAT 97
[2024-08-06] VITALS (11 sets, daily range): BP systolic 110–166; BP diastolic 68–116; PULSE 70–106; RESP 16–20; TEMP 36.114–36.78072; O2SAT 99–100
[2024-08-06 08:27] LABS: BASOPHILS % 0.5 % (0.0-2.0); EOSINOPHILS % 1.9 % (0.0-5.0); HEMATOCRIT. 25.4 % (42.0-52.0); HEMOGLOBIN. 7.8 g/dL (14.0-18.0); LYMPHOCYTES % 27.6 % (20.0-50.0); MEAN CORPUSCULAR HEMOGLOBIN 25.2 pg (28.0-32.0); MEAN CORPUSCULAR HGB CONC 30.7 g/dL (31.0-37.0); MEAN PLATELET VOLUME 6.7 fl (7.4-10.4); PLATELET 406 x1000/uL (130-400); RED CELL DISTRIBUTION WIDTH 20.1 % (11.6-14.6); WHITE BLOOD COUNT 13.8 x1000/uL (4.5-11.0)
[2024-08-06 08:32] LABS: CARBON DIOXIDE 23 mEq/L (21-32); CHLORIDE 103 mEq/L (98-107); POTASSIUM 5.5 mEq/L (3.5-5.1); SODIUM 136 mEq/L (136-145)
[2024-08-06 08:33] LABS: CALCIUM 8.5 mg/dL (8.7-10.4)
[2024-08-06 08:37] LABS: GLUCOSE 75 mg/dL (70-105); IRON 45 ug/dL (65-175); PROTHROMBIN TIME 11.1 sec (9.6-11.0)
[2024-08-06 08:38] LABS: UREA NITROGEN BLOOD 77 mg/dL (9-23)
[2024-08-06 08:39] LABS: ALANINE AMINOTRANSFERASE 39 IU/L (10-49); ALBUMIN 3.2 g/dL (3.2-4.8); ASPARTATE AMINOTRANSFERASE 40 IU/L (<34)
[2024-08-06 08:40] LABS: BILIRUBIN TOTAL 0.2 mg/dL (0.1-1.0); PROTEIN TOTAL 6.4 g/dL (6.0-8.3); TOTAL IRON BINDING CAPACITY 497 ug/dl (250-425)
[2024-08-06 08:41] LABS: CREATININE 11.8 mg/dL (0.6-1.3)
[2024-08-06 08:48] LABS: FOLIC ACID (FOLATE) SERUM 6.39 ng/mL (>5.38); VITAMIN B12 SERUM 291 pg/mL (211-911)
[2024-08-06 08:51] LABS: FERRITIN 315 ng/mL (22-322)
[2024-08-06] MEDS: SODIUM ZIRCONIUM CYCLOSILICATE 10GM/PACKET PO NR (09:45)
[2024-08-06] MEDS: HYDRALAZINE HCL 25MG TABLET PO SCH (16:06)
[2024-08-06] MEDS: CYANOCOBALAMIN 100MCG TABLET PO SCH (16:07)
[2024-08-07] VITALS: BP 120/78; PULSE 96; RESP 20; TEMP 37.61412; O2SAT 97
[2024-08-07 04:00] VITALS: BP 125/84; PULSE 82; RESP 19; TEMP 37.28076; O2SAT 97
[2024-08-07 08:00] VITALS: BP 137/87; PULSE 84; RESP 20; TEMP 36.6696; O2SAT 100
[2024-08-07 11:43] VITALS: BP 126/80; PULSE 85; RESP 20; TEMP 36.6696; O2SAT 100
[2024-08-07 15:58] VITALS: BP 127/80; PULSE 79; RESP 20; TEMP 36.05844; O2SAT 100
[2024-08-07 20:00] VITALS: BP 133/94; PULSE 85; RESP 19; TEMP 37.2252; O2SAT 100
[2024-08-08] VITALS (14 sets, daily range): BP systolic 108–137; BP diastolic 58–95; PULSE 80–102; RESP 15–20; TEMP 36.114–37.2252; O2SAT 95–100
[2024-08-08 18:40] LABS: BASOPHILS % 0.4 % (0.0-2.0); DIFFERENTIAL COMMENT 0; EOSINOPHILS % 1.8 % (0.0-5.0); HEMATOCRIT. 23.7 % (42.0-52.0); HEMOGLOBIN. 7.2 g/dL (14.0-18.0); LYMPHOCYTES % 20.6 % (20.0-50.0); MEAN CORPUSCULAR HEMOGLOBIN 24.8 pg (28.0-32.0); MEAN CORPUSCULAR HGB CONC 30.5 g/dL (31.0-37.0); MEAN CORPUSCULAR VOLUME 81.5 fL (80.0-94.0); MEAN PLATELET VOLUME 6.9 fl (7.4-10.4); MONOCYTES % 5.4 % (2.0-8.0); NEUTROPHILS % 71.8 % (40.0-76.0); PLATELET 374 x1000/uL (130-400); RED CELL DISTRIBUTION WIDTH 19.7 % (11.6-14.6); WHITE BLOOD COUNT 16.8 x1000/uL (4.5-11.0)
[2024-08-08 18:47] LABS: POTASSIUM 5.5 mEq/L (3.5-5.1)
[2024-08-08 18:49] LABS: CALCIUM 8.1 mg/dL (8.7-10.4)
[2024-08-08 18:56] LABS: CREATININE 11.7 mg/dL (0.6-1.3)
[2024-08-09] VITALS: BP 137/66; PULSE 103; RESP 18; TEMP 37.33632; O2SAT 97
[2024-08-09 04:00] VITALS: BP 137/88; PULSE 99; RESP 18; TEMP 37.05852; O2SAT 100
[2024-08-09 08:00] VITALS: BP 142/99; PULSE 88; RESP 18; TEMP 36.44736; O2SAT 97
[2024-08-09 12:00] VITALS: BP 132/90; PULSE 84; RESP 18; TEMP 36.44736; O2SAT 96
[2024-08-09 16:00] VITALS: BP 127/78; PULSE 90; RESP 18; TEMP 37.00296; O2SAT 95
[2024-08-09] MEDS ORDERED: CEFEPIME 1GM IN DEXT 5% 50ML IV SCH (17:00)
[2024-08-09] MEDS: CEFEPIME 1GM PREMIX 50ML IV SCH (18:00)
[2024-08-09] MEDS: LEVOFLOXACIN 250MG TABLET PO NR (18:58)
[2024-08-09] MEDS: VANCOMYCIN 1.5GM/250ML IV NR (19:40)
[2024-08-09 20:00] VITALS: BP 166/88; PULSE 99; RESP 19; TEMP 36.72516; O2SAT 96
[2024-08-09 22:46] LABS: BASOPHILS % 0.3 % (0.0-2.0); EOSINOPHILS % 1.1 % (0.0-5.0); HEMATOCRIT. 25.3 % (42.0-52.0); HEMOGLOBIN. 7.8 g/dL (14.0-18.0); LYMPHOCYTES % 14.5 % (20.0-50.0); MEAN CORPUSCULAR HEMOGLOBIN 25.3 pg (28.0-32.0); MEAN CORPUSCULAR HGB CONC 30.7 g/dL (31.0-37.0); MEAN CORPUSCULAR VOLUME 82.2 fL (80.0-94.0); MONOCYTES % 4.4 % (2.0-8.0); NEUTROPHILS % 79.7 % (40.0-76.0); PLATELET 367 x1000/uL (130-400); RED BLOOD CELL COUNT 3.08 mill/uL (4.7-6.1); RED CELL DISTRIBUTION WIDTH 20.3 % (11.6-14.6); WHITE BLOOD COUNT 25.2 x1000/uL (4.5-11.0)
[2024-08-09 22:51] LABS: CHLORIDE 101 mEq/L (98-107); POTASSIUM 5.1 mEq/L (3.5-5.1); SODIUM 135 mEq/L (136-145)
[2024-08-09 22:52] LABS: CARBON DIOXIDE 25 mEq/L (21-32)
[2024-08-10] VITALS: BP 131/83; PULSE 90; RESP 19; TEMP 36.78072; O2SAT 96
[2024-08-10 08:00] VITALS: BP 131/91; PULSE 90; RESP 20; TEMP 36.16956; O2SAT 99
[2024-08-10 12:00] VITALS: BP 142/87; PULSE 99; RESP 20; TEMP 36.28068; O2SAT 99
[2024-08-10 16:00] VITALS: BP 113/72; PULSE 101; RESP 20; TEMP 36.22512; O2SAT 99
[2024-08-10] MEDS: VANCOMYCIN 1.5GM PMX (XELLIA) 300 ML IV NR (18:00)
[2024-08-10 20:00] VITALS: BP 133/88; PULSE 82; RESP 18; TEMP 36.78072; O2SAT 96
[2024-08-11] VITALS (14 sets, daily range): BP systolic 100–148; BP diastolic 68–106; PULSE 80–113; RESP 18–20; TEMP 36.114–38.11416; O2SAT 95–100
[2024-08-11] MEDS ORDERED: LIDOCAINE HCL 1% 10 MG/ML 10ML VIAL ONE (08:05)
[2024-08-11] MEDS ORDERED: IOHEXOL-300 50 ML BOTTLE IV ONE (09:02)
[2024-08-11] MEDS: METHADONE HCL 10MG TABLET PO SCH (09:52)
[2024-08-11] MEDS: METHADONE HCL 5MG TABLET PO SCH (09:53)
[2024-08-11] MEDS ORDERED: CEFEPIME 1GM IN DEXT 5% 50ML IV SCH (11:15)
[2024-08-11 12:22] LABS: BASOPHILS % 0.2 % (0.0-2.0); EOSINOPHILS % 1.1 % (0.0-5.0); MEAN CORPUSCULAR HEMOGLOBIN 25.5 pg (28.0-32.0); MEAN CORPUSCULAR HGB CONC 31.1 g/dL (31.0-37.0); MEAN CORPUSCULAR VOLUME 81.9 fL (80.0-94.0); MONOCYTES % 4.7 % (2.0-8.0); PLATELET 397 x1000/uL (130-400); RED BLOOD CELL COUNT 2.76 mill/uL (4.7-6.1); RED CELL DISTRIBUTION WIDTH 19.6 % (11.6-14.6); WHITE BLOOD COUNT 16.1 x1000/uL (4.5-11.0)
[2024-08-11 12:23] LABS: POTASSIUM 4.6 mEq/L (3.5-5.1)
[2024-08-11 12:25] LABS: CALCIUM 8.7 mg/dL (8.7-10.4)
[2024-08-11 12:45] LABS: HEMATOCRIT. 22.6 % (42.0-52.0)
[2024-08-11 12:56] LABS: CREATININE 9.6 mg/dL (0.6-1.3)
[2024-08-11] MEDS: VANCOMYCIN 1.5GM PMX (XELLIA) 300 ML IV SCH (13:29)
[2024-08-11] MEDS: CEFEPIME 1GM/50ML 50 ML IV SCH (15:36)
[2024-08-12 04:00] VITALS: BP 118/65; PULSE 94; RESP 20; TEMP 36.78072; O2SAT 100
[2024-08-12 08:00] VITALS: BP 121/81; PULSE 91; RESP 18; TEMP 36.83628; O2SAT 96
[2024-08-12 12:00] VITALS: BP 111/73; PULSE 97; RESP 18; TEMP 37.00296; O2SAT 95
[2024-08-12 16:00] VITALS: BP 114/65; PULSE 94; RESP 18; TEMP 36.78072; O2SAT 95
[2024-08-12 20:00] VITALS: BP 118/84; PULSE 89; RESP 18; TEMP 36.89184; O2SAT 99
[2024-08-12] MEDS: EPOETIN ALFA-EPBX 4,000 UNIT/ML VIAL SUBCUT NR (21:00)
[2024-08-13] VITALS (10 sets, daily range): BP systolic 120–166; BP diastolic 68–101; PULSE 80–119; RESP 18–22; TEMP 36.00288–37.72524; O2SAT 97–100
[2024-08-13 12:42] LABS: BASOPHILS % 0.4 % (0.0-2.0); EOSINOPHILS % 1.1 % (0.0-5.0); HEMATOCRIT. 23.1 % (42.0-52.0); HEMOGLOBIN. 7.1 g/dL (14.0-18.0); LYMPHOCYTES % 14.7 % (20.0-50.0); MEAN CORPUSCULAR HEMOGLOBIN 25.1 pg (28.0-32.0); MEAN CORPUSCULAR HGB CONC 30.9 g/dL (31.0-37.0); MEAN CORPUSCULAR VOLUME 81.2 fL (80.0-94.0); MEAN PLATELET VOLUME 7.1 fl (7.4-10.4); MONOCYTES % 5.5 % (2.0-8.0); NEUTROPHILS % 78.3 % (40.0-76.0); PLATELET 385 x1000/uL (130-400); RED BLOOD CELL COUNT 2.85 mill/uL (4.7-6.1); RED CELL DISTRIBUTION WIDTH 18.9 % (11.6-14.6); WHITE BLOOD COUNT 16.2 x1000/uL (4.5-11.0)
[2024-08-13 12:52] LABS: CALCIUM 8.4 mg/dL (8.7-10.4)
[2024-08-13 13:14] LABS: CREATININE 9.7 mg/dL (0.6-1.3)
[2024-08-13] MEDS: VANCOMYCIN 500MG PREMIX 100 ML IV SCH (14:51)
[2024-08-14] VITALS: BP 123/77; PULSE 70; RESP 18; TEMP 37.39188; O2SAT 97
[2024-08-14 04:00] VITALS: BP 120/72; PULSE 72; RESP 18; TEMP 36.6696; O2SAT 98
[2024-08-14 08:00] VITALS: BP 132/92; PULSE 88; RESP 20; TEMP 36.6696; O2SAT 100
[2024-08-14 12:00] VITALS: BP 126/89; PULSE 83; RESP 18; TEMP 36.78072; O2SAT 95
[2024-08-14 16:00] VITALS: BP 153/93; PULSE 90; RESP 20; TEMP 36.6696; O2SAT 100
[2024-08-14 20:00] VITALS: BP 123/84; PULSE 91; RESP 19; TEMP 36.44736; O2SAT 95
[2024-08-15] VITALS (13 sets, daily range): BP systolic 124–168; BP diastolic 77–111; PULSE 75–107; RESP 16–19; TEMP 36.55848–40.0032; O2SAT 94–100
[2024-08-15 13:00] LABS: BASOPHILS % 0.5 % (0.0-2.0); DIFFERENTIAL COMMENT 0; EOSINOPHILS % 1.7 % (0.0-5.0); HEMATOCRIT. 23.1 % (42.0-52.0); LYMPHOCYTES % 19.1 % (20.0-50.0); MEAN CORPUSCULAR HEMOGLOBIN 24.4 pg (28.0-32.0); MEAN CORPUSCULAR HGB CONC 29.8 g/dL (31.0-37.0); MEAN CORPUSCULAR VOLUME 81.8 fL (80.0-94.0); MEAN PLATELET VOLUME 7.4 fl (7.4-10.4); MONOCYTES % 6.4 % (2.0-8.0); NEUTROPHILS % 72.3 % (40.0-76.0); PLATELET 390 x1000/uL (130-400); RED BLOOD CELL COUNT 2.83 mill/uL (4.7-6.1); RED CELL DISTRIBUTION WIDTH 18.1 % (11.6-14.6); WHITE BLOOD COUNT 12.4 x1000/uL (4.5-11.0)
[2024-08-15 13:13] LABS: HEMOGLOBIN. 6.9 g/dL (14.0-18.0)
[2024-08-15 13:17] LABS: CALCIUM 8.5 mg/dL (8.7-10.4)
[2024-08-15 14:15] LABS: CREATININE 12.2 mg/dL (0.6-1.3)
[2024-08-15 14:16] LABS: POTASSIUM 6.3 mEq/L (3.5-5.1)
[2024-08-16] VITALS (15 sets, daily range): BP systolic 124–140; BP diastolic 83–98; PULSE 76–100; RESP 16–19; TEMP 36.114–38.72532; O2SAT 96–100
[2024-08-16 21:25] LABS: CALCIUM 8.8 mg/dL (8.7-10.4)
[2024-08-16] MEDS: DOXYCYCLINE HYCLATE 100MG CAPSULE PO SCH (21:30)
[2024-08-16 21:36] LABS: CREATININE 8.3 mg/dL (0.6-1.3)
[2024-08-17] VITALS: BP 120/80; PULSE 96; RESP 18; TEMP 39.11424; O2SAT 96
[2024-08-17 03:49] LABS: POTASSIUM 5.1 mEq/L (3.5-5.1)
[2024-08-17 03:51] LABS: CALCIUM 8.3 mg/dL (8.7-10.4)
[2024-08-17 04:00] VITALS: PULSE 85; RESP 18; TEMP 38.11416; O2SAT 95
[2024-08-17 04:01] LABS: CREATININE 9.4 mg/dL (0.6-1.3)
[2024-08-17 08:00] VITALS: BP 140/102; PULSE 80; RESP 19; TEMP 36.9474; O2SAT 98
[2024-08-17] MEDS: METHADONE HCL 5MG TABLET PO SCH (10:34)
[2024-08-17] MEDS: METHADONE HCL 10MG TABLET PO SCH (10:34)
[2024-08-17 12:00] VITALS: BP 140/97; PULSE 93; RESP 19; TEMP 36.9474; O2SAT 97
[2024-08-17] MEDS: VANCOMYCIN 500MG PREMIX 100 ML IV SCH (14:55)
[2024-08-17 20:00] VITALS: BP 118/81; PULSE 85; RESP 18; TEMP 37.89192; O2SAT 96
[2024-08-17 22:01] LABS: BASOPHILS % 0.5 % (0.0-2.0); DIFFERENTIAL COMMENT 0; EOSINOPHILS % 1.6 % (0.0-5.0); LYMPHOCYTES % 19.5 % (20.0-50.0); MEAN CORPUSCULAR HEMOGLOBIN 24.7 pg (28.0-32.0); MEAN CORPUSCULAR HGB CONC 30.8 g/dL (31.0-37.0); MEAN CORPUSCULAR VOLUME 80.5 fL (80.0-94.0); MONOCYTES % 6.8 % (2.0-8.0); NEUTROPHILS % 71.6 % (40.0-76.0); PLATELET 370 x1000/uL (130-400); RED BLOOD CELL COUNT 2.59 mill/uL (4.7-6.1); RED CELL DISTRIBUTION WIDTH 18.2 % (11.6-14.6); WHITE BLOOD COUNT 15.3 x1000/uL (4.5-11.0)
[2024-08-17 22:20] LABS: HEMATOCRIT. 20.9 % (42.0-52.0); HEMOGLOBIN. 6.4 g/dL (14.0-18.0)
[2024-08-18] VITALS (15 sets, daily range): BP systolic 115–162; BP diastolic 66–109; PULSE 82–115; RESP 15–19; TEMP 36.22512–38.39196; O2SAT 95–100
[2024-08-18 01:54] LABS: IRON 13 ug/dL (65-175)
[2024-08-18 06:26] LABS: CALCIUM 8.6 mg/dL (8.7-10.4)
[2024-08-18 06:51] LABS: DIFFERENTIAL COMMENT 0; EOSINOPHILS % 2.2 % (0.0-5.0); LYMPHOCYTES % 19.2 % (20.0-50.0); MEAN CORPUSCULAR HEMOGLOBIN 24.5 pg (28.0-32.0); MEAN CORPUSCULAR HGB CONC 30.3 g/dL (31.0-37.0); MEAN CORPUSCULAR VOLUME 80.9 fL (80.0-94.0); MEAN PLATELET VOLUME 7.1 fl (7.4-10.4); MONOCYTES % 6.5 % (2.0-8.0); NEUTROPHILS % 71.1 % (40.0-76.0); PLATELET 375 x1000/uL (130-400); RED BLOOD CELL COUNT 2.54 mill/uL (4.7-6.1); RED CELL DISTRIBUTION WIDTH 17.8 % (11.6-14.6); WHITE BLOOD COUNT 13.5 x1000/uL (4.5-11.0)
[2024-08-18 07:36] LABS: POTASSIUM 6.4 mEq/L (3.5-5.1)
[2024-08-18 07:37] LABS: CREATININE 11.3 mg/dL (0.6-1.3)
[2024-08-18 08:17] LABS: HEMATOCRIT. 20.6 % (42.0-52.0); HEMOGLOBIN. 6.2 g/dL (14.0-18.0)
[2024-08-18] MEDS ORDERED: ALBUTEROL (0.5%) 2.5MG/0.5ML NEB HHN NR (09:30)
[2024-08-18] MEDS: SODIUM ZIRCONIUM CYCLOSILICATE 10GM/PACKET PO NR (09:37)
[2024-08-18] MEDS: ACETAMINOPHEN 325MG TABLET PO PRN (16:38)
[2024-08-18] MEDS: VANCOMYCIN 500MG PREMIX 100 ML IV SCH (21:08)
[2024-08-19] VITALS: BP 114/76; PULSE 97; RESP 18; TEMP 36.72516; O2SAT 100
[2024-08-19 04:00] VITALS: BP 120/77; PULSE 98; RESP 18; TEMP 36.61404; O2SAT 100
[2024-08-19 08:00] VITALS: BP 133/88; PULSE 85; RESP 18; TEMP 36.72516; O2SAT 99
[2024-08-19 12:00] VITALS: BP 118/75; PULSE 90; RESP 18; TEMP 36.44736; O2SAT 98
[2024-08-19 16:07] VITALS: BP 108/70; PULSE 81; RESP 16; TEMP 36.6696; O2SAT 98
[2024-08-19 17:01] LABS: INR 1.1; PROTHROMBIN TIME 11.9 sec (9.6-11.0)
[2024-08-19 17:03] LABS: BASOPHILS % 0.6 % (0.0-2.0); DIFFERENTIAL COMMENT 0; EOSINOPHILS % 1.6 % (0.0-5.0); LYMPHOCYTES % 17.8 % (20.0-50.0); MEAN CORPUSCULAR HEMOGLOBIN 24.3 pg (28.0-32.0); MEAN CORPUSCULAR HGB CONC 30.2 g/dL (31.0-37.0); MEAN CORPUSCULAR VOLUME 80.5 fL (80.0-94.0); MEAN PLATELET VOLUME 7.3 fl (7.4-10.4); MONOCYTES % 6.8 % (2.0-8.0); NEUTROPHILS % 73.2 % (40.0-76.0); PLATELET 370 x1000/uL (130-400); RED BLOOD CELL COUNT 2.64 mill/uL (4.7-6.1)
[2024-08-19 17:08] LABS: CHLORIDE 100 mEq/L (98-107); POTASSIUM 5.1 mEq/L (3.5-5.1); SODIUM 137 mEq/L (136-145)
[2024-08-19 17:09] LABS: CALCIUM 8.6 mg/dL (8.7-10.4); CARBON DIOXIDE 27 mEq/L (21-32)
[2024-08-19 17:12] LABS: HEMOGLOBIN. 6.4 g/dL (14.0-18.0)
[2024-08-19 17:13] LABS: HEMATOCRIT. 21.2 % (42.0-52.0)
[2024-08-19 17:14] LABS: GLUCOSE 96 mg/dL (70-105)
[2024-08-19 17:15] LABS: UREA NITROGEN BLOOD 70 mg/dL (9-23)
[2024-08-19 17:17] LABS: PHOSPHORUS 5.7 mg/dL (2.5-4.9)
[2024-08-19 17:18] LABS: CREATININE 10.1 mg/dL (0.6-1.3)
[2024-08-19 20:00] VITALS: BP 118/82; PULSE 92; RESP 19; TEMP 37.00296; O2SAT 95
[2024-08-19] MEDS: EPOETIN ALFA-EPBX 4,000 UNIT/ML VIAL SUBCUT SCH (22:28)
[2024-08-20] VITALS (15 sets, daily range): BP systolic 114–159; BP diastolic 78–100; PULSE 82–100; RESP 17–20; TEMP 36.3918–37.503; O2SAT 97–100
[2024-08-20 10:36] LABS: BASOPHILS % 0.6 % (0.0-2.0); EOSINOPHILS % 1.9 % (0.0-5.0); HEMATOCRIT. 23.2 % (42.0-52.0); HEMOGLOBIN. 7.2 g/dL (14.0-18.0); LYMPHOCYTES % 18.4 % (20.0-50.0); MEAN CORPUSCULAR HEMOGLOBIN 25.1 pg (28.0-32.0); MEAN CORPUSCULAR HGB CONC 31.2 g/dL (31.0-37.0); MEAN CORPUSCULAR VOLUME 80.6 fL (80.0-94.0); MEAN PLATELET VOLUME 7.3 fl (7.4-10.4); MONOCYTES % 6.1 % (2.0-8.0); PLATELET 362 x1000/uL (130-400); RED BLOOD CELL COUNT 2.88 mill/uL (4.7-6.1); RED CELL DISTRIBUTION WIDTH 17.6 % (11.6-14.6); WHITE BLOOD COUNT 13.2 x1000/uL (4.5-11.0)
[2024-08-20 10:39] LABS: POTASSIUM 6.1 mEq/L (3.5-5.1)
[2024-08-20 10:40] LABS: CALCIUM 8.3 mg/dL (8.7-10.4)
[2024-08-20 10:47] LABS: CREATININE 10.7 mg/dL (0.6-1.3)
[2024-08-20] MEDS: SODIUM ZIRCONIUM CYCLOSILICATE 10GM/PACKET PO NR (15:09)
[2024-08-20] MEDS: VANCOMYCIN 500MG/100ML IV NR (17:09)
[2024-08-20 21:56] LABS: POTASSIUM 4.2 mEq/L (3.5-5.1)
[2024-08-20 21:58] LABS: CALCIUM 7.9 mg/dL (8.7-10.4)
[2024-08-20 22:03] LABS: CREATININE 8.8 mg/dL (0.6-1.3)
[2024-08-21] VITALS: BP 126/86; PULSE 89; RESP 18; TEMP 36.55848; O2SAT 99
[2024-08-21 04:00] VITALS: BP 138/98; PULSE 77; RESP 18; TEMP 36.61404; O2SAT 99
[2024-08-21] MEDS: PANTOPRAZOLE 40MG DR TABLET PO NR (04:58)
[2024-08-21 05:52] LABS: CHLORIDE 101 mEq/L (98-107); POTASSIUM 4.7 mEq/L (3.5-5.1)
[2024-08-21 05:53] LABS: CARBON DIOXIDE 26 mEq/L (21-32); SODIUM 138 mEq/L (136-145)
[2024-08-21 05:54] LABS: CALCIUM 8.2 mg/dL (8.7-10.4)
[2024-08-21 05:59] LABS: GLUCOSE 82 mg/dL (70-105); UREA NITROGEN BLOOD 61 mg/dL (9-23)
[2024-08-21 06:00] LABS: TROPONIN I HIGH SENSITIVITY 21 ng/L (3.0-53)
[2024-08-21 06:02] LABS: BASOPHILS % 0.4 % (0.0-2.0); DIFFERENTIAL COMMENT 0; EOSINOPHILS % 0.6 % (0.0-5.0); HEMATOCRIT. 21.3 % (42.0-52.0); LYMPHOCYTES % 9.2 % (20.0-50.0); MEAN CORPUSCULAR HEMOGLOBIN 25.2 pg (28.0-32.0); MEAN CORPUSCULAR HGB CONC 31.6 g/dL (31.0-37.0); MEAN CORPUSCULAR VOLUME 79.9 fL (80.0-94.0); MEAN PLATELET VOLUME 7.3 fl (7.4-10.4); MONOCYTES % 6.3 % (2.0-8.0); NEUTROPHILS % 83.5 % (40.0-76.0); PLATELET 350 x1000/uL (130-400); RED BLOOD CELL COUNT 2.66 mill/uL (4.7-6.1); RED CELL DISTRIBUTION WIDTH 17.2 % (11.6-14.6); WHITE BLOOD COUNT 26.8 x1000/uL (4.5-11.0)
[2024-08-21 06:48] LABS: CREATININE 10.1 mg/dL (0.6-1.3)
[2024-08-21 06:50] LABS: HEMOGLOBIN. 6.7 g/dL (14.0-18.0)
[2024-08-21 07:55] VITALS: BP 141/89; PULSE 81; RESP 20; TEMP 36.83628; O2SAT 97
[2024-08-21 12:00] VITALS: BP 123/80; PULSE 83; RESP 18; TEMP 36.89184; O2SAT 100
[2024-08-21] MEDS: SODIUM ZIRCONIUM CYCLOSILICATE 10GM/PACKET PO NR (12:10)
[2024-08-21] MEDS ORDERED: LIDOCAINE HCL 1% 10 MG/ML 10ML VIAL ONE (13:05)
[2024-08-21 16:30] VITALS: BP 139/83; PULSE 86; RESP 17; TEMP 36.72516; O2SAT 97
[2024-08-21 18:37] LABS: HEPATITIS B SURFACE AB 134.9 mIU/mL (<10)
[2024-08-21 18:49] LABS: HEPATITIS B SURFACE ANTIGEN NEGATIVE (Negative)
[2024-08-21 19:11] LABS: HEPATITIS B CORE AB IGM NEGATIVE (Negative)
[2024-08-21 20:00] VITALS: BP 129/92; PULSE 75; RESP 18; TEMP 36.55848; O2SAT 99
[2024-08-22] VITALS: BP 113/74; PULSE 89; RESP 18; TEMP 36.55848; O2SAT 99
[2024-08-22 04:00] VITALS: BP 118/76; PULSE 87; RESP 17; TEMP 36.55848; O2SAT 99
[2024-08-22 05:58] LABS: POTASSIUM 4.8 mEq/L (3.5-5.1)
[2024-08-22 06:26] LABS: BASOPHILS % 0.7 % (0.0-2.0); EOSINOPHILS % 2.1 % (0.0-5.0); HEMATOCRIT. 22.8 % (42.0-52.0); HEMOGLOBIN. 7.4 g/dL (14.0-18.0); LYMPHOCYTES % 17.6 % (20.0-50.0); MEAN CORPUSCULAR HGB CONC 32.4 g/dL (31.0-37.0); MEAN CORPUSCULAR VOLUME 80.2 fL (80.0-94.0); MEAN PLATELET VOLUME 7.4 fl (7.4-10.4); MONOCYTES % 6.3 % (2.0-8.0); NEUTROPHILS % 73.3 % (40.0-76.0); PLATELET 372 x1000/uL (130-400); RED BLOOD CELL COUNT 2.84 mill/uL (4.7-6.1); RED CELL DISTRIBUTION WIDTH 17.7 % (11.6-14.6); WHITE BLOOD COUNT 17.8 x1000/uL (4.5-11.0)
[2024-08-22 06:27] LABS: CREATININE 11.9 mg/dL (0.6-1.3)
[2024-08-22] MEDS: PANTOPRAZOLE 40MG DR TABLET PO SCH (06:29)
[2024-08-22 08:09] VITALS: BP 145/90; PULSE 89; RESP 16; TEMP 36.89184; O2SAT 99
[2024-08-22 12:00] VITALS: BP 150/88; PULSE 91; RESP 18; TEMP 37.11408; O2SAT 100
[2024-08-22 16:00] VITALS: BP 147/81; PULSE 96; RESP 19; TEMP 36.9474; O2SAT 97
[2024-08-22 20:00] VITALS: BP 144/102; PULSE 75; RESP 17; TEMP 36.50292; O2SAT 98
[2024-08-23] VITALS (7 sets, daily range): BP systolic 137–151; BP diastolic 97–110; PULSE 67–74; RESP 17–18; TEMP 36.44736–36.72516; O2SAT 98–100
[2024-08-23] MEDS: DIPHENHYDRAMINE 25MG CAPSULE PO PRN (03:09)
[2024-08-23 07:23] LABS: POTASSIUM 5.1 mEq/L (3.5-5.1)
[2024-08-23 07:24] LABS: EOSINOPHILS % 2.4 % (0.0-5.0); HEMATOCRIT. 22.8 % (42.0-52.0); HEMOGLOBIN. 7.2 g/dL (14.0-18.0); LYMPHOCYTES % 22.7 % (20.0-50.0); MEAN CORPUSCULAR HEMOGLOBIN 25.5 pg (28.0-32.0); MEAN CORPUSCULAR HGB CONC 31.6 g/dL (31.0-37.0); MEAN CORPUSCULAR VOLUME 80.7 fL (80.0-94.0); MEAN PLATELET VOLUME 7.5 fl (7.4-10.4); MONOCYTES % 6.5 % (2.0-8.0); NEUTROPHILS % 67.4 % (40.0-76.0); PLATELET 350 x1000/uL (130-400); RED BLOOD CELL COUNT 2.82 mill/uL (4.7-6.1); RED CELL DISTRIBUTION WIDTH 17.2 % (11.6-14.6); WHITE BLOOD COUNT 13.1 x1000/uL (4.5-11.0)
[2024-08-23 07:25] LABS: CALCIUM 8.1 mg/dL (8.7-10.4)
[2024-08-23 07:31] LABS: CREATININE 12.9 mg/dL (0.6-1.3)
[2024-08-23] MEDS ORDERED: ALBUTEROL (0.5%) 2.5MG/0.5ML NEB HHN NR (09:15)
[2024-08-23] MEDS: SODIUM ZIRCONIUM CYCLOSILICATE 10GM/PACKET PO NR (09:59)
[2024-08-23] MEDS: VANCOMYCIN 500MG PREMIX 100 ML IV SCH (21:23)
[2024-08-23] MEDS: ZOLPIDEM TARTRATE 5MG TABLET PO PRN (22:33)
[2024-08-23] MEDS: CLONIDINE 0.1MG TABLET PO PRN (22:42)
[2024-08-24 08:00] VITALS: BP 152/108; PULSE 76; TEMP 36.83628
[2024-08-24 08:11] LABS: CA 19-9 < 2 U/mL (0-35)
[2024-08-24 10:34] LABS: BASOPHILS % 0.9 % (0.0-2.0); EOSINOPHILS % 2.3 % (0.0-5.0); HEMATOCRIT. 25.3 % (42.0-52.0); HEMOGLOBIN. 7.9 g/dL (14.0-18.0); LYMPHOCYTES % 21.5 % (20.0-50.0); MEAN CORPUSCULAR HEMOGLOBIN 25.1 pg (28.0-32.0); MEAN CORPUSCULAR HGB CONC 31.2 g/dL (31.0-37.0); MEAN CORPUSCULAR VOLUME 80.7 fL (80.0-94.0); MEAN PLATELET VOLUME 7.3 fl (7.4-10.4); MONOCYTES % 4.5 % (2.0-8.0); NEUTROPHILS % 70.8 % (40.0-76.0); PLATELET 447 x1000/uL (130-400); RED BLOOD CELL COUNT 3.14 mill/uL (4.7-6.1); RED CELL DISTRIBUTION WIDTH 18.1 % (11.6-14.6)
[2024-08-24 10:42] LABS: POTASSIUM 5.9 mEq/L (3.5-5.1)
[2024-08-24 10:43] LABS: CALCIUM 8.2 mg/dL (8.7-10.4)
[2024-08-24 11:14] LABS: CREATININE 14.1 mg/dL (0.6-1.3)
[2024-08-24 12:00] VITALS: BP 127/98; PULSE 76; RESP 18; TEMP 36.72516; O2SAT 97
[2024-08-24 18:00] VITALS: BP 132/96; PULSE 72; RESP 18; TEMP 36.78072; O2SAT 97
[2024-08-24 20:00] VITALS: BP 125/81; PULSE 93; RESP 18; TEMP 36.50292; O2SAT 98
[2024-08-25] VITALS (16 sets, daily range): BP systolic 114–151; BP diastolic 70–93; PULSE 78–94; RESP 12–20; TEMP 36.50292–37.11408; O2SAT 93–99
[2024-08-25] MEDS: SODIUM BICARBONATE 8.4% 50MEQ/50ML SYR IV NR (07:43)
[2024-08-25] MEDS: INSULIN REGULAR (HUMULIN R) 1000UNITS/10ML VIAL IV NR (07:45)
[2024-08-25] MEDS: DEXTROSE 50% WATER 50ML SYRINGE IV NR (07:48)
[2024-08-25] MEDS: SODIUM ZIRCONIUM CYCLOSILICATE 10GM/PACKET PO NR ×2 (07:49→16:41)
[2024-08-25 10:19] LABS: EOSINOPHILS % 3.5 % (0.0-5.0); HEMATOCRIT. 30.6 % (42.0-52.0); HEMOGLOBIN. 9.5 g/dL (14.0-18.0); MEAN CORPUSCULAR HEMOGLOBIN 25.4 pg (28.0-32.0); MEAN CORPUSCULAR HGB CONC 31.2 g/dL (31.0-37.0); MEAN CORPUSCULAR VOLUME 81.3 fL (80.0-94.0); MEAN PLATELET VOLUME 7.3 fl (7.4-10.4); MONOCYTES % 4.8 % (2.0-8.0); NEUTROPHILS % 59.7 % (40.0-76.0); PLATELET 504 x1000/uL (130-400); RED BLOOD CELL COUNT 3.76 mill/uL (4.7-6.1); RED CELL DISTRIBUTION WIDTH 17.8 % (11.6-14.6); WHITE BLOOD COUNT 10.4 x1000/uL (4.5-11.0)
[2024-08-25 10:26] LABS: CALCIUM 8.4 mg/dL (8.7-10.4); POTASSIUM 5.6 mEq/L (3.5-5.1)
[2024-08-25] MEDS ORDERED: LIDOCAINE HCL 1% 10 MG/ML 10ML VIAL ONE (11:09)
[2024-08-25] MEDS ORDERED: MIDAZOLAM HCL 2 MG/2 ML VIAL ONE (11:21)
[2024-08-25] MEDS ORDERED: FENTANYL CITRATE/PF 50MCG/ML 2ML VIAL ONE (11:21)
[2024-08-25] MEDS: MIDAZOLAM HCL 2 MG/2 ML VIAL IV ONE (11:30)
[2024-08-25] MEDS: FENTANYL CITRATE/PF 50MCG/ML 2ML VIAL IV ONE (11:30)
[2024-08-25] MEDS: TRAZODONE HCL 50MG TABLET PO SCH (21:10)
[2024-08-26] VITALS (13 sets, daily range): BP systolic 139–175; BP diastolic 84–106; PULSE 70–91; RESP 16–17; TEMP 36.6696–36.78072; O2SAT 97–99
[2024-08-26] MEDS: VANCOMYCIN 750MG/150ML (BAXTER) IV SCH (16:33)
[2024-08-27] VITALS (7 sets, daily range): BP systolic 121–137; BP diastolic 78–97; PULSE 75–80; RESP 18–19; TEMP 36.50292–38.50308; O2SAT 18–100
[2024-08-28] VITALS (11 sets, daily range): BP systolic 116–138; BP diastolic 74–89; PULSE 71–92; RESP 16–20; TEMP 35.66952–36.6696; O2SAT 76–99
[2024-08-28] MEDS: VANCOMYCIN 500MG/100ML IV NR (23:01)
[2024-08-29] VITALS: BP 124/86; PULSE 84; RESP 18; TEMP 37.72524; O2SAT 95
[2024-08-29 01:42] LABS: EOSINOPHILS % 4.4 % (0.0-5.0); HEMATOCRIT. 23.4 % (42.0-52.0); HEMOGLOBIN. 7.6 g/dL (14.0-18.0); LYMPHOCYTES % 26.6 % (20.0-50.0); MEAN CORPUSCULAR HEMOGLOBIN 26.3 pg (28.0-32.0); MEAN CORPUSCULAR HGB CONC 32.6 g/dL (31.0-37.0); MEAN CORPUSCULAR VOLUME 80.9 fL (80.0-94.0); MEAN PLATELET VOLUME 6.8 fl (7.4-10.4); MONOCYTES % 6.6 % (2.0-8.0); NEUTROPHILS % 61.4 % (40.0-76.0); PLATELET 378 x1000/uL (130-400); RED CELL DISTRIBUTION WIDTH 18.7 % (11.6-14.6); WHITE BLOOD COUNT 10.3 x1000/uL (4.5-11.0)
[2024-08-29 01:47] LABS: POTASSIUM 4.2 mEq/L (3.5-5.1)
[2024-08-29 01:48] LABS: CALCIUM 8.6 mg/dL (8.7-10.4)
[2024-08-29 03:18] LABS: CREATININE 11.7 mg/dL (0.6-1.3)
[2024-08-29 08:00] VITALS: BP 138/92; PULSE 76; RESP 20; TEMP 37.00296; O2SAT 97
[2024-08-29 12:00] VITALS: BP 140/96; PULSE 77; RESP 20; TEMP 37.00296; O2SAT 97
[2024-08-29] MEDS: SEVELAMER CARBONATE 800 MG TABLET PO SCH (14:30)
[2024-08-29 20:00] VITALS: BP 129/89; PULSE 85; RESP 20; TEMP 37.61412; O2SAT 100
[2024-08-29 22:52] LABS: PHOSPHORUS 7.5 mg/dL (2.5-4.9)
[2024-08-30 08:00] VITALS: BP 145/91; PULSE 79; RESP 19; TEMP 36.72516; O2SAT 99
[2024-08-30 12:00] VITALS: BP 149/92; PULSE 68; RESP 20; TEMP 36.3918; O2SAT 98
[2024-08-30 16:00] VITALS: BP 123/74; PULSE 81; RESP 20; TEMP 35.66952; O2SAT 99
[2024-08-30 20:00] VITALS: BP 121/83; PULSE 77; RESP 20; TEMP 36.50292; O2SAT 97
[2024-08-31 08:00] VITALS: BP 142/102; PULSE 69; RESP 16; TEMP 36.72516; O2SAT 99
[2024-08-31] MEDS: SEVELAMER CARBONATE 800 MG TABLET PO SCH (08:28)
[2024-08-31] MEDS: LACTOBACILLUS GG CAPSULE PO SCH (09:00)
[2024-08-31 10:26] VITALS: BP 128/87; PULSE 78
[2024-08-31] MEDS ORDERED: METHADONE HCL 5MG/5ML ORAL SOLN UDC PO SCH (11:45)
[2024-08-31 12:00] VITALS: BP 134/82; PULSE 80; RESP 18; TEMP 36.61404
[2024-08-31] MEDS: METHADONE HCL 10MG TABLET PO SCH (12:37)
[2024-08-31] MEDS: METHADONE HCL 5MG TABLET PO SCH (12:52)
[2024-08-31] MEDS: VANCOMYCIN 500MG PREMIX 100 ML IV SCH (15:00)
[2024-08-31 16:00] VITALS: BP 139/86; PULSE 77; RESP 16; TEMP 36.72516
[2024-08-31 20:00] VITALS: BP 110/78; PULSE 74; RESP 18; TEMP 36.83628
[2024-08-31] MEDS: IOHEXOL-350 100 ML BOTTLE ONE (21:53)
[2024-09-01] VITALS (15 sets, daily range): BP systolic 101–132; BP diastolic 70–93; PULSE 72–102; RESP 16–20; TEMP 36.33624–37.2252; O2SAT 98–100
[2024-09-02 04:00] VITALS: BP 136/94; PULSE 71; RESP 19; TEMP 36.78072; O2SAT 98
[2024-09-02 08:00] VITALS: BP 143/99; PULSE 74; RESP 20; TEMP 36.55848; O2SAT 100
[2024-09-02 12:00] VITALS: BP 152/101; PULSE 66; RESP 18; TEMP 36.28068; O2SAT 100
[2024-09-02 16:00] VITALS: BP 129/87; PULSE 71; RESP 20; TEMP 36.55848; O2SAT 97
[2024-09-03] VITALS (11 sets, daily range): BP systolic 108–179; BP diastolic 69–111; PULSE 65–84; RESP 16–20; TEMP 36.50292–37.2252; O2SAT 97–100
[2024-09-03 13:57] LABS: TROPONIN I HIGH SENSITIVITY 18 ng/L (3.0-53)
[2024-09-03] MEDS: VANCOMYCIN 750MG PMX (XELLIA) 150 ML IV NR (17:47)
[2024-09-03 22:29] LABS: TROPONIN I HIGH SENSITIVITY 17 ng/L (3.0-53)
[2024-09-04 04:00] VITALS: BP 145/94; PULSE 78; RESP 20; TEMP 36.72516; O2SAT 99
[2024-09-04 08:00] VITALS: BP 167/108; PULSE 76; RESP 20; TEMP 36.78072; O2SAT 100
[2024-09-04 11:25] LABS: BASOPHILS % 0.9 % (0.0-2.0); EOSINOPHILS % 3.2 % (0.0-5.0); HEMATOCRIT. 22.9 % (42.0-52.0); HEMOGLOBIN. 7.2 g/dL (14.0-18.0); LYMPHOCYTES % 21.6 % (20.0-50.0); MEAN CORPUSCULAR HEMOGLOBIN 25.8 pg (28.0-32.0); MEAN CORPUSCULAR HGB CONC 31.5 g/dL (31.0-37.0); MEAN CORPUSCULAR VOLUME 81.9 fL (80.0-94.0); MEAN PLATELET VOLUME 7.6 fl (7.4-10.4); MONOCYTES % 6.5 % (2.0-8.0); NEUTROPHILS % 67.8 % (40.0-76.0); PLATELET 286 x1000/uL (130-400); RED CELL DISTRIBUTION WIDTH 17.8 % (11.6-14.6); WHITE BLOOD COUNT 9.9 x1000/uL (4.5-11.0)
[2024-09-04 11:31] LABS: POTASSIUM 4.7 mEq/L (3.5-5.1)
[2024-09-04 11:45] LABS: CREATININE 12.2 mg/dL (0.6-1.3)
[2024-09-04 12:00] VITALS: BP 152/100; PULSE 74; RESP 20; TEMP 36.22512; O2SAT 100
[2024-09-04 16:00] VITALS: BP 135/90; PULSE 78; RESP 20; TEMP 36.78072; O2SAT 99
[2024-09-04 20:12] VITALS: BP 158/99; PULSE 66; RESP 20; TEMP 36.33624; O2SAT 100
[2024-09-04] MEDS: VANCOMYCIN 750MG PMX (XELLIA) 150 ML IV NR (21:34)
[2024-09-05] VITALS (15 sets, daily range): BP systolic 138–174; BP diastolic 98–126; PULSE 58–75; RESP 17–20; TEMP 36.28068–37.05852; O2SAT 97–100
[2024-09-05 10:20] LABS: CALCIUM 8.6 mg/dL (8.7-10.4)
[2024-09-05 10:27] LABS: CREATININE 15.7 mg/dL (0.6-1.3)
[2024-09-05 10:44] LABS: BASOPHILS % 1.3 % (0.0-2.0); EOSINOPHILS % 5.7 % (0.0-5.0); HEMATOCRIT. 22.4 % (42.0-52.0); LYMPHOCYTES % 28.4 % (20.0-50.0); MEAN CORPUSCULAR HEMOGLOBIN 25.3 pg (28.0-32.0); MEAN CORPUSCULAR VOLUME 81.5 fL (80.0-94.0); MEAN PLATELET VOLUME 8.1 fl (7.4-10.4); MONOCYTES % 8.2 % (2.0-8.0); NEUTROPHILS % 56.4 % (40.0-76.0); PLATELET 275 x1000/uL (130-400); RED BLOOD CELL COUNT 2.76 mill/uL (4.7-6.1); RED CELL DISTRIBUTION WIDTH 17.5 % (11.6-14.6); WHITE BLOOD COUNT 8.2 x1000/uL (4.5-11.0)
[2024-09-05] MEDS: VANCOMYCIN 750MG PMX (XELLIA) 150 ML IV SCH (21:29)
[2024-09-06 04:00] VITALS: BP 155/110; PULSE 90; RESP 19; TEMP 36.83628; O2SAT 97
[2024-09-06 08:00] VITALS: BP 160/100; PULSE 80; RESP 18; TEMP 36.78072; O2SAT 98
[2024-09-06] MEDS ORDERED: METHADONE HCL 5MG TABLET PO ONE (11:00)
[2024-09-06] MEDS ORDERED: METHADONE HCL 10MG TABLET PO ONE (11:00)
[2024-09-06] MEDS: METHADONE HCL 5MG TABLET PO SCH (11:18)
[2024-09-06] MEDS: METHADONE HCL 10MG TABLET PO SCH (11:18)
[2024-09-06 12:00] VITALS: BP 160/99; PULSE 86; RESP 20; TEMP 36.6696; O2SAT 96
[2024-09-06 16:00] VITALS: BP 150/100; PULSE 84; RESP 16; TEMP 36.55848; O2SAT 97
[2024-09-07] VITALS (12 sets, daily range): BP systolic 128–174; BP diastolic 96–112; PULSE 67–77; RESP 16–20; TEMP 36.114–37.00296; O2SAT 94–100
[2024-09-07 09:57] LABS: BASOPHILS % 1.7 % (0.0-2.0); DIFFERENTIAL COMMENT 0; EOSINOPHILS % 6.9 % (0.0-5.0); LYMPHOCYTES % 39.2 % (20.0-50.0); MEAN CORPUSCULAR HEMOGLOBIN 25.9 pg (28.0-32.0); MEAN CORPUSCULAR HGB CONC 27.9 g/dL (31.0-37.0); MEAN CORPUSCULAR VOLUME 92.5 fL (80.0-94.0); MEAN PLATELET VOLUME 7.8 fl (7.4-10.4); NEUTROPHILS % 43.2 % (40.0-76.0); PLATELET 135 x1000/uL (130-400); RED BLOOD CELL COUNT 1.58 mill/uL (4.7-6.1); RED CELL DISTRIBUTION WIDTH 17.6 % (11.6-14.6); WHITE BLOOD COUNT 4.3 x1000/uL (4.5-11.0)
[2024-09-07 10:09] LABS: HEMATOCRIT. 14.6 % (42.0-52.0); HEMOGLOBIN. 4.1 g/dL (14.0-18.0)
[2024-09-07 10:19] LABS: CREATININE 11.6 mg/dL (0.6-1.3)
[2024-09-07 10:22] LABS: CALCIUM 5.2 mg/dL (8.7-10.4)
[2024-09-07 11:59] LABS: IRON < 5 ug/dL (65-175); TOTAL IRON BINDING CAPACITY 235 ug/dl (250-425)
[2024-09-07 12:20] LABS: FOLIC ACID (FOLATE) SERUM 19.18 ng/mL (>5.38); VITAMIN B12 SERUM 651 pg/mL (211-911)
[2024-09-07] MEDS: CYANOCOBALAMIN 1000MCG/ML VIAL IM NR (14:14)
[2024-09-07] MEDS: VANCOMYCIN 750MG PREMIX 150 ML IV SCH (21:34)
[2024-09-08] VITALS (11 sets, daily range): BP systolic 138–166; BP diastolic 67–110; PULSE 65–70; RESP 16–20; TEMP 35.78064–36.83628; O2SAT 94–100
[2024-09-08] MEDS: CLONIDINE 0.1MG TABLET PO PRN (01:38)
[2024-09-08] MEDS ORDERED: ALBUTEROL (0.5%) 2.5MG/0.5ML NEB HHN NR (05:00)
[2024-09-08] MEDS: SODIUM ZIRCONIUM CYCLOSILICATE 10GM/PACKET PO NR (06:25)
[2024-09-08 06:45] LABS: BASOPHILS % 1.5 % (0.0-2.0); EOSINOPHILS % 6.5 % (0.0-5.0); HEMATOCRIT. 26.1 % (42.0-52.0); HEMOGLOBIN. 8.2 g/dL (14.0-18.0); LYMPHOCYTES % 31.8 % (20.0-50.0); MEAN CORPUSCULAR HEMOGLOBIN 26.1 pg (28.0-32.0); MEAN CORPUSCULAR HGB CONC 31.5 g/dL (31.0-37.0); MEAN CORPUSCULAR VOLUME 82.8 fL (80.0-94.0); MEAN PLATELET VOLUME 8.1 fl (7.4-10.4); MONOCYTES % 8.9 % (2.0-8.0); NEUTROPHILS % 51.3 % (40.0-76.0); PLATELET 238 x1000/uL (130-400); RED BLOOD CELL COUNT 3.15 mill/uL (4.7-6.1); RED CELL DISTRIBUTION WIDTH 17.1 % (11.6-14.6); WHITE BLOOD COUNT 7.8 x1000/uL (4.5-11.0)
[2024-09-08 07:28] LABS: POTASSIUM 5.4 mEq/L (3.5-5.1)
[2024-09-08 07:29] LABS: CALCIUM 8.9 mg/dL (8.7-10.4)
[2024-09-08 08:24] LABS: CREATININE 11.6 mg/dL (0.6-1.3)
[2024-09-08] MEDS: AMLODIPINE 5MG TABLET PO SCH ×2 (09:10→20:57)
[2024-09-08] MEDS: TRAZODONE HCL 50MG TABLET PO SCH (20:56)
[2024-09-09] VITALS (14 sets, daily range): BP systolic 118–145; BP diastolic 82–102; PULSE 63–82; RESP 15–18; TEMP 36.55848–36.78072; O2SAT 96–100
[2024-09-10 04:00] VITALS: BP 145/103; PULSE 73; RESP 18; TEMP 36.44736; O2SAT 95
[2024-09-10 08:00] VITALS: BP 146/100; PULSE 74; RESP 16; TEMP 36.6696; O2SAT 97
[2024-09-10 12:00] VITALS: BP 156/104; PULSE 78; RESP 18; TEMP 36.89184; O2SAT 98
[2024-09-10] MEDS: VANCOMYCIN 500MG/100ML IV NR (12:11)
[2024-09-10 13:27] LABS: BASOPHILS % 0.9 % (0.0-2.0); EOSINOPHILS % 6.1 % (0.0-5.0); HEMOGLOBIN. 7.2 g/dL (14.0-18.0); LYMPHOCYTES % 35.1 % (20.0-50.0); MEAN CORPUSCULAR HEMOGLOBIN 25.5 pg (28.0-32.0); MEAN CORPUSCULAR HGB CONC 31.3 g/dL (31.0-37.0); MEAN CORPUSCULAR VOLUME 81.7 fL (80.0-94.0); MEAN PLATELET VOLUME 8.4 fl (7.4-10.4); MONOCYTES % 7.6 % (2.0-8.0); NEUTROPHILS % 50.3 % (40.0-76.0); PLATELET 77 x1000/uL (130-400); RED BLOOD CELL COUNT 2.81 mill/uL (4.7-6.1); RED CELL DISTRIBUTION WIDTH 16.9 % (11.6-14.6); WHITE BLOOD COUNT 5.5 x1000/uL (4.5-11.0)
[2024-09-10 16:00] VITALS: BP 148/100; PULSE 70; RESP 16; TEMP 36.78072; O2SAT 99
[2024-09-10 20:00] VITALS: BP 131/89; PULSE 72; RESP 18; TEMP 36.114; O2SAT 96
[2024-09-11 04:00] VITALS: BP 136/97; PULSE 87; RESP 18; TEMP 36.114; O2SAT 95
[2024-09-11 08:00] VITALS: BP 138/97; PULSE 71; RESP 18; TEMP 36.16956; O2SAT 100
[2024-09-11 12:00] VITALS: BP 122/82; PULSE 69; RESP 19; TEMP 36.114; O2SAT 98
[2024-09-11 12:41] LABS: BASOPHILS % 1.2 % (0.0-2.0); EOSINOPHILS % 6.8 % (0.0-5.0); HEMATOCRIT. 24.6 % (42.0-52.0); HEMOGLOBIN. 7.8 g/dL (14.0-18.0); LYMPHOCYTES % 33.5 % (20.0-50.0); MEAN CORPUSCULAR HEMOGLOBIN 26.1 pg (28.0-32.0); MEAN CORPUSCULAR HGB CONC 31.6 g/dL (31.0-37.0); MEAN CORPUSCULAR VOLUME 82.5 fL (80.0-94.0); MONOCYTES % 9.4 % (2.0-8.0); NEUTROPHILS % 49.1 % (40.0-76.0); RED BLOOD CELL COUNT 2.98 mill/uL (4.7-6.1); WHITE BLOOD COUNT 8.5 x1000/uL (4.5-11.0)
[2024-09-11 12:56] LABS: DIFFERENTIAL COMMENT 1
[2024-09-11 13:02] LABS: POTASSIUM 4.4 mEq/L (3.5-5.1)
[2024-09-11 13:04] LABS: CALCIUM 7.4 mg/dL (8.7-10.4)
[2024-09-11 13:11] LABS: CREATININE 12.3 mg/dL (0.6-1.3)
[2024-09-11 16:00] VITALS: BP 120/82; PULSE 70; RESP 18; TEMP 36.114; O2SAT 97
[2024-09-11 19:15] LABS: MEAN PLATELET VOLUME 8.3 fl (7.4-10.4); PLATELET 206 x1000/uL (130-400)
[2024-09-11 20:00] VITALS: BP 129/89; PULSE 68; RESP 18; TEMP 36.3918; O2SAT 98
[2024-09-12] VITALS (10 sets, daily range): BP systolic 115–155; BP diastolic 70–98; PULSE 66–77; RESP 16–18; TEMP 36.114–36.72516; O2SAT 86–100
[2024-09-12 08:58] LABS: CALCIUM 9.1 mg/dL (8.7-10.4); POTASSIUM 5.9 mEq/L (3.5-5.1)
[2024-09-12 09:05] LABS: BASOPHILS % 0.9 % (0.0-2.0); EOSINOPHILS % 6.9 % (0.0-5.0); HEMATOCRIT. 26.8 % (42.0-52.0); HEMOGLOBIN. 8.6 g/dL (14.0-18.0); LYMPHOCYTES % 29.6 % (20.0-50.0); MEAN CORPUSCULAR HEMOGLOBIN 26.2 pg (28.0-32.0); MEAN CORPUSCULAR VOLUME 81.8 fL (80.0-94.0); MEAN PLATELET VOLUME 8.4 fl (7.4-10.4); MONOCYTES % 9.2 % (2.0-8.0); NEUTROPHILS % 53.4 % (40.0-76.0); PLATELET 249 x1000/uL (130-400); RED BLOOD CELL COUNT 3.28 mill/uL (4.7-6.1); RED CELL DISTRIBUTION WIDTH 17.4 % (11.6-14.6); WHITE BLOOD COUNT 8.4 x1000/uL (4.5-11.0)
[2024-09-12 09:12] LABS: CREATININE 15.6 mg/dL (0.6-1.3)
[2024-09-12] MEDS: METHADONE HCL 10MG TABLET PO SCH (12:08)
[2024-09-12] MEDS: METHADONE HCL 5MG TABLET PO SCH (12:09)
[2024-09-13 04:00] VITALS: TEMP 36.6696
[2024-09-13 08:00] VITALS: BP 146/99; PULSE 87; RESP 18; TEMP 36.72516; O2SAT 96
[2024-09-13 12:00] VITALS: BP 139/95; PULSE 84; RESP 20; TEMP 36.61404; O2SAT 95
[2024-09-13 16:00] VITALS: BP 138/99; PULSE 85; RESP 20; TEMP 36.61404; O2SAT 97
[2024-09-14 04:00] VITALS: BP 146/101; PULSE 100; RESP 18; TEMP 36.22512; O2SAT 95
[2024-09-14 08:00] VITALS: BP 142/98; PULSE 78; RESP 20; TEMP 36.44736; O2SAT 99
[2024-09-14] MEDS ORDERED: NON FORMULARY MED XX SCH (09:30)
[2024-09-14 12:00] VITALS: BP 147/68; PULSE 97; RESP 20; TEMP 36.3918; O2SAT 98
[2024-09-14] MEDS: IRON SUCROSE COMPLEX 100 MG/5 ML ML IV SCH (12:29)
[2024-09-14 16:00] VITALS: BP 138/96; PULSE 84; RESP 20; TEMP 36.16956; O2SAT 99
[2024-09-15] VITALS (11 sets, daily range): BP systolic 125–155; BP diastolic 70–100; PULSE 73–87; RESP 18–20; TEMP 36.44736–36.55848; O2SAT 95–100
[2024-09-15 08:01] LABS: CHLORIDE 99 mEq/L (98-107); SODIUM 136 mEq/L (136-145)
[2024-09-15 08:02] LABS: CALCIUM 9.5 mg/dL (8.7-10.4); CARBON DIOXIDE 25 mEq/L (21-32)
[2024-09-15 08:07] LABS: GLUCOSE 65 mg/dL (70-105); UREA NITROGEN BLOOD 80 mg/dL (9-23)
[2024-09-15 08:36] LABS: BASOPHILS % 0.7 % (0.0-2.0); EOSINOPHILS % 7.2 % (0.0-5.0); HEMATOCRIT. 29.5 % (42.0-52.0); HEMOGLOBIN. 9.4 g/dL (14.0-18.0); LYMPHOCYTES % 35.1 % (20.0-50.0); MEAN CORPUSCULAR HEMOGLOBIN 25.8 pg (28.0-32.0); MEAN CORPUSCULAR HGB CONC 31.9 g/dL (31.0-37.0); MEAN CORPUSCULAR VOLUME 80.9 fL (80.0-94.0); MEAN PLATELET VOLUME 8.2 fl (7.4-10.4); MONOCYTES % 9.1 % (2.0-8.0); NEUTROPHILS % 47.9 % (40.0-76.0); PLATELET 263 x1000/uL (130-400); RED BLOOD CELL COUNT 3.64 mill/uL (4.7-6.1); RED CELL DISTRIBUTION WIDTH 16.9 % (11.6-14.6)
[2024-09-15] MEDS ORDERED: DEXTROSE 50% WATER 50ML SYRINGE IV SCH (09:00)
[2024-09-15] MEDS ORDERED: INSULIN REGULAR (HUMULIN R) 1000UNITS/10ML VIAL IV SCH (09:00)
[2024-09-15] MEDS ORDERED: SODIUM BICARBONATE 8.4% 50MEQ/50ML SYR IV SCH (09:00)
[2024-09-15 09:16] LABS: CREATININE 15.6 mg/dL (0.6-1.3)
[2024-09-15 09:17] LABS: PHOSPHORUS 8.7 mg/dL (2.5-4.9)
[2024-09-15] MEDS: SODIUM ZIRCONIUM CYCLOSILICATE 10GM/PACKET PO SCH (10:18)
[2024-09-15 16:17] LABS: POTASSIUM 4.5 mEq/L (3.5-5.1)
[2024-09-15] MEDS: BUSPIRONE HCL 5MG TABLET PO SCH (21:55)
[2024-09-15] MEDS: TRAZODONE HCL 50MG TABLET PO SCH (21:56)
[2024-09-15] MEDS: EPOETIN ALFA-EPBX 4,000 UNIT/ML VIAL SUBCUT SCH (21:56)
[2024-09-16 04:00] VITALS: BP 131/92; PULSE 82; RESP 18; TEMP 36.50292
[2024-09-16 08:00] VITALS: BP 142/103; PULSE 94; RESP 18; TEMP 36.6696; O2SAT 100
[2024-09-16] MEDS: ACETAMINOPHEN 325MG TABLET PO PRN (08:41)
[2024-09-16 12:00] VITALS: BP 139/101; PULSE 90; RESP 19; TEMP 36.61404; O2SAT 95
[2024-09-16 16:00] VITALS: BP 133/98; PULSE 83; RESP 18; TEMP 36.72516; O2SAT 100
[2024-09-16 20:00] VITALS: BP 146/87; PULSE 85; RESP 18; TEMP 37.2252; O2SAT 97
[2024-09-16] MEDS: TRAZODONE HCL 50MG TABLET PO SCH (21:57)
[2024-09-16] MEDS: BUSPIRONE HCL 10MG TABLET PO SCH (21:58)
[2024-09-17 04:00] VITALS: BP 133/93; PULSE 94; RESP 18; TEMP 37.00296; O2SAT 98
[2024-09-17 08:00] VITALS: BP 121/90; PULSE 78; RESP 20; TEMP 36.55848; O2SAT 100
[2024-09-17 12:00] VITALS: BP 128/87; PULSE 88; RESP 20; TEMP 36.55848; O2SAT 100
[2024-09-17 16:00] VITALS: BP 129/100; PULSE 79; RESP 20; TEMP 36.44736; O2SAT 100
[2024-09-18] VITALS (12 sets, daily range): BP systolic 122–144; BP diastolic 68–90; PULSE 67–79; RESP 18–22; TEMP 36.22512–36.6696; O2SAT 97–99
[2024-09-19] VITALS (12 sets, daily range): BP systolic 110–136; BP diastolic 85–96; PULSE 70–96; RESP 16–19; TEMP 36.22512–36.6696; O2SAT 98–100
[2024-09-19] MEDS: METHADONE HCL 10MG TABLET PO SCH (10:55)
[2024-09-19] MEDS: METHADONE HCL 5MG TABLET PO SCH (10:56)
[2024-09-19 14:38] LABS: POTASSIUM 4.8 mEq/L (3.5-5.1)
[2024-09-19 14:39] LABS: CALCIUM 8.6 mg/dL (8.7-10.4)
[2024-09-19 14:48] LABS: CREATININE 9.6 mg/dL (0.6-1.3)
[2024-09-19 14:52] LABS: BASOPHILS % 1.1 % (0.0-2.0); EOSINOPHILS % 7.1 % (0.0-5.0); HEMATOCRIT. 26.6 % (42.0-52.0); HEMOGLOBIN. 8.5 g/dL (14.0-18.0); LYMPHOCYTES % 28.2 % (20.0-50.0); MEAN CORPUSCULAR HEMOGLOBIN 25.9 pg (28.0-32.0); MEAN CORPUSCULAR VOLUME 80.8 fL (80.0-94.0); MEAN PLATELET VOLUME 7.6 fl (7.4-10.4); MONOCYTES % 8.9 % (2.0-8.0); NEUTROPHILS % 54.7 % (40.0-76.0); PLATELET 273 x1000/uL (130-400); RED BLOOD CELL COUNT 3.29 mill/uL (4.7-6.1); RED CELL DISTRIBUTION WIDTH 17.2 % (11.6-14.6); WHITE BLOOD COUNT 7.2 x1000/uL (4.5-11.0)
[2024-09-20 04:00] VITALS: BP 130/94; PULSE 68; RESP 18; TEMP 36.55848; O2SAT 98
[2024-09-20 08:00] VITALS: BP 136/99; PULSE 83; RESP 18; TEMP 36.72516; O2SAT 83
[2024-09-20 12:00] VITALS: BP 135/85; PULSE 82; RESP 20; TEMP 37.11408; O2SAT 100
[2024-09-20 12:15] LABS: BASOPHILS % 0.8 % (0.0-2.0); EOSINOPHILS % 6.4 % (0.0-5.0); HEMATOCRIT. 27.3 % (42.0-52.0); HEMOGLOBIN. 8.6 g/dL (14.0-18.0); LYMPHOCYTES % 29.3 % (20.0-50.0); MEAN CORPUSCULAR HEMOGLOBIN 25.6 pg (28.0-32.0); MEAN CORPUSCULAR HGB CONC 31.6 g/dL (31.0-37.0); MEAN PLATELET VOLUME 7.6 fl (7.4-10.4); MONOCYTES % 7.1 % (2.0-8.0); NEUTROPHILS % 56.4 % (40.0-76.0); PLATELET 267 x1000/uL (130-400); RED BLOOD CELL COUNT 3.37 mill/uL (4.7-6.1); RED CELL DISTRIBUTION WIDTH 17.2 % (11.6-14.6); WHITE BLOOD COUNT 6.8 x1000/uL (4.5-11.0)
[2024-09-20 16:00] VITALS: BP 138/89; PULSE 85; RESP 19; TEMP 36.6696; O2SAT 95
[2024-09-20 20:00] VITALS: BP 134/93; PULSE 79; RESP 20; TEMP 36.72516; O2SAT 98
[2024-09-21] VITALS: BP_SYST 135; BP_SYST 136; BP_DIAS 92; BP_DIAS 93; PULSE 84; RESP 20; TEMP 36.72516; TEMP 36.78072; O2SAT 98
[2024-09-21 04:00] VITALS: BP 136/93; PULSE 84; RESP 20; TEMP 36.78072; O2SAT 98
[2024-09-21 08:00] VITALS: BP 120/89; PULSE 76; RESP 15; TEMP 36.6696; O2SAT 95
[2024-09-21 12:00] VITALS: BP 120/89; PULSE 76; RESP 17; TEMP 36.6696; O2SAT 96
[2024-09-21 16:00] VITALS: BP 141/100; PULSE 75; RESP 19; TEMP 36.9474; O2SAT 100
[2024-09-21 20:00] VITALS: BP 145/101; PULSE 98; RESP 15; TEMP 36.9474; O2SAT 97
[2024-09-22] VITALS (14 sets, daily range): BP systolic 132–162; BP diastolic 88–107; PULSE 83–100; RESP 15–18; TEMP 36.22512–37.11408; O2SAT 98–100
[2024-09-22 07:23] LABS: BASOPHILS % 0.8 % (0.0-2.0); EOSINOPHILS % 3.4 % (0.0-5.0); HEMATOCRIT. 26.6 % (42.0-52.0); HEMOGLOBIN. 8.5 g/dL (14.0-18.0); LYMPHOCYTES % 19.5 % (20.0-50.0); MEAN CORPUSCULAR HEMOGLOBIN 25.7 pg (28.0-32.0); MEAN CORPUSCULAR HGB CONC 32.1 g/dL (31.0-37.0); MEAN PLATELET VOLUME 7.7 fl (7.4-10.4); MONOCYTES % 6.3 % (2.0-8.0); PLATELET 261 x1000/uL (130-400); RED BLOOD CELL COUNT 3.32 mill/uL (4.7-6.1); RED CELL DISTRIBUTION WIDTH 17.1 % (11.6-14.6); WHITE BLOOD COUNT 9.3 x1000/uL (4.5-11.0)
[2024-09-22] MEDS ORDERED: LIDOCAINE HCL 1% 10 MG/ML 10ML VIAL ONE (07:50)
[2024-09-22] MEDS ORDERED: IOHEXOL-300 50 ML BOTTLE IV ONE (08:33)
[2024-09-23 04:00] VITALS: BP 149/57; PULSE 91; RESP 19; TEMP 36.72516; O2SAT 98
[2024-09-23 16:00] VITALS: BP 136/84; PULSE 89; RESP 18; TEMP 36.78072; O2SAT 100
[2024-09-23 20:00] VITALS: BP 131/87; PULSE 87; RESP 20; TEMP 36.6696; O2SAT 96
[2024-09-24] VITALS (16 sets, daily range): BP systolic 121–167; BP diastolic 78–97; PULSE 66–92; RESP 18–24; TEMP 35.2806–36.89184; O2SAT 94–100
[2024-09-24 06:31] LABS: CALCIUM 8.8 mg/dL (8.7-10.4)
[2024-09-24] MEDS: HYDROCODONE/ACETAMINOPHEN 5/325MG TABLET PO PRN (06:35)
[2024-09-24] MEDS: IPRATROPIUM/ALBUTEROL 0.5-3(2.5)MG/3ML NEB HHN PRN (06:45)
[2024-09-24 08:50] LABS: CREATININE 17.7 mg/dL (0.6-1.3)
[2024-09-24] MEDS ORDERED: SODIUM POLYSTYRENE SULFONATE 15 G/60 ML BOT PO ONE (10:30)
[2024-09-24] MEDS: SODIUM BICARBONATE 8.4% 50MEQ/50ML SYR IV NR (11:06)
[2024-09-24] MEDS: DEXTROSE 50% WATER 50ML SYRINGE IV NR (11:06)
[2024-09-24] MEDS: SODIUM ZIRCONIUM CYCLOSILICATE 10GM/PACKET PO NR (11:06)
[2024-09-24] MEDS: CALCIUM GLUCONATE 1GM PREMIX 50 ML IV SCH (11:07)
[2024-09-24] MEDS: INSULIN REGULAR (HUMULIN R) 1000UNITS/10ML VIAL IV NR (11:08)
[2024-09-24 11:09] LABS: BASOPHILS % 0.7 % (0.0-2.0); EOSINOPHILS % 6.2 % (0.0-5.0); HEMATOCRIT. 24.6 % (42.0-52.0); HEMOGLOBIN. 7.9 g/dL (14.0-18.0); LYMPHOCYTES % 24.7 % (20.0-50.0); MEAN CORPUSCULAR HEMOGLOBIN 25.9 pg (28.0-32.0); MEAN CORPUSCULAR HGB CONC 32.2 g/dL (31.0-37.0); MEAN CORPUSCULAR VOLUME 80.5 fL (80.0-94.0); MEAN PLATELET VOLUME 7.8 fl (7.4-10.4); MONOCYTES % 9.9 % (2.0-8.0); NEUTROPHILS % 58.5 % (40.0-76.0); PLATELET 256 x1000/uL (130-400); RED BLOOD CELL COUNT 3.05 mill/uL (4.7-6.1); RED CELL DISTRIBUTION WIDTH 16.9 % (11.6-14.6); WHITE BLOOD COUNT 9.1 x1000/uL (4.5-11.0)
[2024-09-24 15:43] LABS: POTASSIUM 6.8 mEq/L (3.5-5.1)
[2024-09-24 20:39] LABS: POTASSIUM 4.6 mEq/L (3.5-5.1)
[2024-09-24 20:40] LABS: CALCIUM 9.2 mg/dL (8.7-10.4)
[2024-09-24 21:32] LABS: CREATININE 11.7 mg/dL (0.6-1.3)
[2024-09-25] VITALS (11 sets, daily range): BP systolic 126–135; BP diastolic 82–98; PULSE 74–83; RESP 18–20; TEMP 36.50292–36.78072; O2SAT 96–99
[2024-09-25 13:01] LABS: CHLORIDE 105 mEq/L (98-107); POTASSIUM 6.1 mEq/L (3.5-5.1); SODIUM 140 mEq/L (136-145)
[2024-09-25 13:02] LABS: CARBON DIOXIDE 26 mEq/L (21-32)
[2024-09-25 13:03] LABS: CALCIUM 8.6 mg/dL (8.7-10.4)
[2024-09-25 13:07] LABS: GLUCOSE 103 mg/dL (70-105); IRON 20 ug/dL (65-175)
[2024-09-25 13:08] LABS: UREA NITROGEN BLOOD 68 mg/dL (9-23)
[2024-09-25 13:10] LABS: TOTAL IRON BINDING CAPACITY 239 ug/dl (250-425)
[2024-09-25 13:38] LABS: CREATININE 13.5 mg/dL (0.6-1.3)
[2024-09-25] MEDS: CALCIUM GLUCONATE 1GM PREMIX 50 ML IV NR (17:25)
[2024-09-25] MEDS: DEXTROSE 50% WATER 50ML SYRINGE IV NR (17:25)
[2024-09-25] MEDS: SODIUM BICARBONATE 8.4% 50MEQ/50ML SYR IV NR (17:26)
[2024-09-25] MEDS: INSULIN REGULAR (HUMULIN R) 1000UNITS/10ML VIAL IV NR (17:54)
[2024-09-26] VITALS: BP 130/86; PULSE 84; RESP 17; TEMP 36.72516; O2SAT 97
[2024-09-26 04:00] VITALS: BP 133/93; PULSE 83; RESP 18; TEMP 36.61404; O2SAT 98
[2024-09-26 08:00] VITALS: BP 141/98; PULSE 85; RESP 18; TEMP 36.6696; O2SAT 98
[2024-09-26 09:27] LABS: CALCIUM 8.9 mg/dL (8.7-10.4)
[2024-09-26] MEDS: METHADONE HCL 10MG TABLET PO SCH (09:31)
[2024-09-26] MEDS: METHADONE HCL 5MG TABLET PO SCH (09:32)
[2024-09-26 11:30] LABS: CREATININE 11.1 mg/dL (0.6-1.3)
[2024-09-26 12:00] VITALS: BP 145/95; PULSE 89; RESP 18; TEMP 36.83628
[2024-09-26 16:00] VITALS: BP 138/95; PULSE 85; RESP 18; TEMP 36.6696
[2024-09-26 20:00] VITALS: BP 134/95; PULSE 81; RESP 18; TEMP 37.16964
[2024-09-26] MEDS: TRAZODONE HCL 50MG TABLET PO SCH (21:45)
[2024-09-27] VITALS (16 sets, daily range): BP systolic 127–148; BP diastolic 82–100; PULSE 79–98; RESP 18–20; TEMP 36.28068–37.44744; O2SAT 83–100
[2024-09-28 04:00] VITALS: BP 132/99; PULSE 85; RESP 19; TEMP 38.11416
[2024-09-28] MEDS ORDERED: NALOXONE HCL 0.4MG/ML VIAL IV PRN (06:30)
[2024-09-28 08:00] VITALS: BP 138/98; PULSE 90; RESP 18; TEMP 37.33632; O2SAT 98
[2024-09-28 12:00] VITALS: BP 132/95; PULSE 89; RESP 18; TEMP 36.72516; O2SAT 95
[2024-09-28 16:00] VITALS: BP 129/90; PULSE 88; RESP 17; TEMP 36.72516; O2SAT 95
[2024-09-28 20:00] VITALS: BP 141/99; PULSE 79; RESP 19; TEMP 36.61404; O2SAT 96
[2024-09-29] VITALS (14 sets, daily range): BP systolic 113–137; BP diastolic 84–103; PULSE 76–88; RESP 16–20; TEMP 36.7–37.1; O2SAT 96–100
[2024-09-29] MEDS: TRAMADOL 50MG TABLET PO PRN (08:58)
[2024-09-30] VITALS: BP 123/79; PULSE 80; RESP 20; TEMP 37; O2SAT 100
[2024-09-30 04:00] VITALS: BP 133/80; PULSE 86; RESP 20; TEMP 36.8; O2SAT 100
[2024-09-30 04:48] LABS: HEMATOCRIT 23.5 % (42.0-52.0); HEMOGLOBIN 7.5 g/dL (14.0-18.0); MEAN CORPUSCULAR HEMOGLOBIN 25.1 pg (28.0-32.0); MEAN CORPUSCULAR HGB CONC 31.9 g/dL (31.0-37.0); MEAN CORPUSCULAR VOLUME 78.9 fL (80.0-94.0); PLATELET 276 x1000/uL (130-400); RED BLOOD CELL COUNT 2.97 mill/uL (4.7-6.1); RED CELL DISTRIBUTION WIDTH 16.9 % (11.6-14.6); WHITE BLOOD COUNT 7.2 x1000/uL (4.5-11.0)
[2024-09-30 04:57] LABS: POTASSIUM 5.2 mEq/L (3.5-5.1)
[2024-09-30 04:58] LABS: CALCIUM 8.6 mg/dL (8.7-10.4)
[2024-09-30 05:07] LABS: CREATININE 10.8 mg/dL (0.6-1.3)
[2024-09-30 08:00] VITALS: BP 120/83; PULSE 78; RESP 19; TEMP 36.9
[2024-09-30] MEDS: SODIUM ZIRCONIUM CYCLOSILICATE 10GM/PACKET PO NR (13:22)
[2024-09-30 16:30] VITALS: BP 125/87; PULSE 75; RESP 18; TEMP 36.8; O2SAT 98
[2024-09-30 20:00] VITALS: BP 133/93; PULSE 79; RESP 19; TEMP 37.1; O2SAT 100
[2024-10-01] VITALS (10 sets, daily range): BP systolic 128–138; BP diastolic 74–100; PULSE 72–90; RESP 18–20; TEMP 36.00288–37.2; O2SAT 97–99
[2024-10-02 04:00] VITALS: BP 133/95; PULSE 88; RESP 18; TEMP 36.7; O2SAT 98
[2024-10-02 08:00] VITALS: BP 133/95; PULSE 83; RESP 18; TEMP 37; O2SAT 95
[2024-10-02 12:00] VITALS: BP 134/101; PULSE 97; RESP 19; TEMP 36.8; O2SAT 95
[2024-10-02 16:00] VITALS: BP 126/90; PULSE 83; RESP 18; TEMP 36.6; O2SAT 98
[2024-10-02 20:00] VITALS: BP 131/96; PULSE 83; RESP 18; TEMP 37.1; O2SAT 99
[2024-10-03] VITALS (12 sets, daily range): BP systolic 116–144; BP diastolic 80–96; PULSE 72–90; RESP 15–19; TEMP 36.22512–37; O2SAT 96–99
[2024-10-03] MEDS: METHADONE HCL 10MG TABLET PO SCH (09:46)
[2024-10-03] MEDS: METHADONE HCL 5MG TABLET PO SCH (09:47)
[2024-10-04 08:00] VITALS: BP 127/93; PULSE 72; RESP 18; TEMP 35.9; O2SAT 96
[2024-10-04 12:00] VITALS: BP 128/91; PULSE 60; RESP 18; TEMP 36; O2SAT 95
[2024-10-04 16:00] VITALS: BP 127/85; PULSE 79; RESP 16; TEMP 36.7; O2SAT 98
[2024-10-04 20:00] VITALS: BP 124/85; PULSE 87; RESP 20; TEMP 36; O2SAT 100
[2024-10-04] MEDS: LACTULOSE 20G/30ML UDC PO PRN (21:06)
[2024-10-04] MEDS: OXYCODONE HCL/ACETAMINOPHEN 5/325MG TABLET PO PRN (21:06)
[2024-10-05] VITALS (14 sets, daily range): BP systolic 110–130; BP diastolic 76–96; PULSE 79–99; RESP 16–18; TEMP 36.2–37.11408; O2SAT 96–100
[2024-10-05 22:00] LABS: BASOPHILS % 0.7 % (0.0-2.0); DIFFERENTIAL COMMENT 0; EOSINOPHILS % 4.9 % (0.0-5.0); HEMATOCRIT. 22.9 % (42.0-52.0); HEMOGLOBIN. 7.4 g/dL (14.0-18.0); MEAN CORPUSCULAR HEMOGLOBIN 24.9 pg (28.0-32.0); MEAN CORPUSCULAR HGB CONC 32.1 g/dL (31.0-37.0); MEAN CORPUSCULAR VOLUME 77.5 fL (80.0-94.0); MEAN PLATELET VOLUME 6.6 fl (7.4-10.4); MONOCYTES % 8.5 % (2.0-8.0); NEUTROPHILS % 52.9 % (40.0-76.0); PLATELET 327 x1000/uL (130-400); RED BLOOD CELL COUNT 2.96 mill/uL (4.7-6.1); WHITE BLOOD COUNT 6.9 x1000/uL (4.5-11.0)
[2024-10-05 22:17] LABS: CALCIUM 8.8 mg/dL (8.7-10.4)
[2024-10-05 22:24] LABS: CREATININE 10.8 mg/dL (0.6-1.3)
[2024-10-06 08:00] VITALS: BP 122/69; PULSE 81; RESP 19; TEMP 36.8; O2SAT 98
[2024-10-06 12:00] VITALS: BP 129/82; PULSE 90; RESP 19; TEMP 36.8; O2SAT 99
[2024-10-06 16:00] VITALS: BP 138/89; PULSE 64; RESP 19; TEMP 36.8; O2SAT 100
[2024-10-06 20:00] VITALS: BP 111/75; PULSE 76; RESP 18; TEMP 36.2; O2SAT 98
[2024-10-07] VITALS (13 sets, daily range): BP systolic 108–135; BP diastolic 79–92; PULSE 76–90; RESP 8–20; TEMP 36.3–37.2; O2SAT 96–100
[2024-10-08 08:31] VITALS: BP 136/69; PULSE 84; TEMP 36.9
[2024-10-08 11:40] LABS: BASOPHILS % 0.7 % (0.0-2.0); DIFFERENTIAL COMMENT 0; EOSINOPHILS % 4.5 % (0.0-5.0); HEMATOCRIT. 24.3 % (42.0-52.0); HEMOGLOBIN. 7.7 g/dL (14.0-18.0); LYMPHOCYTES % 21.6 % (20.0-50.0); MEAN CORPUSCULAR HEMOGLOBIN 24.9 pg (28.0-32.0); MEAN CORPUSCULAR HGB CONC 31.6 g/dL (31.0-37.0); MEAN CORPUSCULAR VOLUME 78.9 fL (80.0-94.0); MEAN PLATELET VOLUME 7.3 fl (7.4-10.4); MONOCYTES % 8.8 % (2.0-8.0); NEUTROPHILS % 64.4 % (40.0-76.0); PLATELET 293 x1000/uL (130-400); RED BLOOD CELL COUNT 3.07 mill/uL (4.7-6.1); RED CELL DISTRIBUTION WIDTH 17.4 % (11.6-14.6); WHITE BLOOD COUNT 6.6 x1000/uL (4.5-11.0)
[2024-10-08 12:00] VITALS: BP 125/80; PULSE 76; RESP 18; TEMP 36.6
[2024-10-08 12:00] LABS: CARBON DIOXIDE 25 mEq/L (21-32); CHLORIDE 99 mEq/L (98-107); POTASSIUM 5.8 mEq/L (3.5-5.1); SODIUM 137 mEq/L (136-145)
[2024-10-08 12:05] LABS: GLUCOSE 85 mg/dL (70-105)
[2024-10-08 12:06] LABS: UREA NITROGEN BLOOD 73 mg/dL (9-23)
[2024-10-08 12:08] LABS: PHOSPHORUS 7.9 mg/dL (2.5-4.9)
[2024-10-08 12:14] LABS: CREATININE 12.8 mg/dL (0.6-1.3)
[2024-10-08 16:00] VITALS: BP 120/93; PULSE 72; RESP 20; TEMP 36.7; O2SAT 100
[2024-10-08 20:00] VITALS: BP 130/88; PULSE 77; RESP 16; TEMP 36.8; O2SAT 99
[2024-10-08] MEDS: SODIUM BICARBONATE 8.4% 50MEQ/50ML SYR IV NR (22:56)
[2024-10-08] MEDS: DEXTROSE 50% WATER 50ML SYRINGE IV NR (22:56)
[2024-10-08] MEDS: CALCIUM GLUCONATE 1GM PREMIX 50 ML IV NR (22:57)
[2024-10-08] MEDS: INSULIN REGULAR (HUMULIN R) 1000UNITS/10ML VIAL IV NR (22:57)
[2024-10-09] VITALS (11 sets, daily range): BP systolic 128–159; BP diastolic 71–102; PULSE 66–90; RESP 16–23; TEMP 36.55848–37.1; O2SAT 96–99
[2024-10-09] MEDS: SEVELAMER CARBONATE 800 MG TABLET PO SCH (08:41)
[2024-10-09 18:27] LABS: POTASSIUM 4.7 mEq/L (3.5-5.1)
[2024-10-09 18:28] LABS: CALCIUM 8.8 mg/dL (8.7-10.4)
[2024-10-09 18:29] LABS: BASOPHILS % 0.6 % (0.0-2.0); DIFFERENTIAL COMMENT 0; EOSINOPHILS % 8.1 % (0.0-5.0); HEMATOCRIT. 23.1 % (42.0-52.0); HEMOGLOBIN. 7.2 g/dL (14.0-18.0); LYMPHOCYTES % 30.3 % (20.0-50.0); MEAN CORPUSCULAR HEMOGLOBIN 24.1 pg (28.0-32.0); MEAN CORPUSCULAR HGB CONC 31.2 g/dL (31.0-37.0); MEAN CORPUSCULAR VOLUME 77.1 fL (80.0-94.0); MEAN PLATELET VOLUME 6.9 fl (7.4-10.4); MONOCYTES % 8.9 % (2.0-8.0); NEUTROPHILS % 52.1 % (40.0-76.0); PLATELET 286 x1000/uL (130-400); RED CELL DISTRIBUTION WIDTH 17.5 % (11.6-14.6); WHITE BLOOD COUNT 5.4 x1000/uL (4.5-11.0)
[2024-10-09 18:39] LABS: CREATININE 9.7 mg/dL (0.6-1.3)
[2024-10-09] MEDS ORDERED: NALOXONE HCL 0.4MG/ML VIAL IV PRN (21:00)
[2024-10-10] VITALS (8 sets, daily range): BP systolic 71–165; BP diastolic 78–129; PULSE 64–80; RESP 18–20; TEMP 36.3–36.6696; O2SAT 97–98
[2024-10-10] MEDS: METHADONE HCL 10MG TABLET PO SCH (12:21)
[2024-10-10] MEDS: METHADONE HCL 5MG TABLET PO SCH (12:22)
[2024-10-10 18:21] LABS: CHLORIDE 101 mEq/L (98-107); SODIUM 140 mEq/L (136-145)
[2024-10-10 18:22] LABS: CARBON DIOXIDE 28 mEq/L (21-32)
[2024-10-10] MEDS: DEXTROSE 50% WATER 50ML SYRINGE IV NR (21:43)
[2024-10-10] MEDS: SODIUM BICARBONATE 8.4% 50MEQ/50ML SYR IV NR (21:43)
[2024-10-10] MEDS: INSULIN REGULAR (HUMULIN R) 1000UNITS/10ML VIAL IV NR (21:48)
[2024-10-11] VITALS: BP_SYST 155; BP_SYST 160; BP_DIAS 68; PULSE 68; PULSE 69; RESP 18; TEMP 36.7; O2SAT 97
[2024-10-11 00:30] VITALS: BP 155/68; PULSE 66; RESP 20; TEMP 36.50292; O2SAT 97
[2024-10-11] MEDS: CALCIUM GLUCONATE 1GM PREMIX 50 ML IV NR (01:17)
[2024-10-11 08:00] VITALS: BP 151/95; PULSE 77; RESP 18; TEMP 36.7; O2SAT 95
[2024-10-11 12:00] VITALS: BP 147/106; PULSE 83; RESP 18; TEMP 36.7; O2SAT 95
[2024-10-11 14:02] LABS: POTASSIUM 5.1 mEq/L (3.5-5.1)
[2024-10-11 14:03] LABS: CALCIUM 9.1 mg/dL (8.7-10.4)
[2024-10-11 14:28] LABS: CREATININE 9.8 mg/dL (0.6-1.3)
[2024-10-11 16:00] VITALS: BP 142/104; PULSE 80; RESP 18; TEMP 36.7; O2SAT 95
[2024-10-11 20:00] VITALS: BP 151/114; PULSE 83; RESP 18; TEMP 36.5; O2SAT 83
[2024-10-11] MEDS: OXYCODONE HCL/ACETAMINOPHEN 5/325MG TABLET PO PRN (23:19)
[2024-10-12] VITALS (11 sets, daily range): BP systolic 122–149; BP diastolic 82–109; PULSE 68–83; RESP 16–19; TEMP 36.2–36.8; O2SAT 98–100
[2024-10-12 06:18] LABS: CARBON DIOXIDE 30 mEq/L (21-32); CHLORIDE 98 mEq/L (98-107); POTASSIUM 5.1 mEq/L (3.5-5.1); SODIUM 137 mEq/L (136-145)
[2024-10-13 04:00] VITALS: BP 159/99; PULSE 83; RESP 19; TEMP 36.2
[2024-10-13 08:00] VITALS: BP 163/91; PULSE 74; RESP 19; TEMP 36.7; O2SAT 98
[2024-10-13 12:00] VITALS: BP 138/96; PULSE 74; RESP 19; TEMP 36.8; O2SAT 99
[2024-10-13 16:00] VITALS: BP 132/88; PULSE 70; RESP 19; TEMP 36.7; O2SAT 99
[2024-10-14] VITALS (13 sets, daily range): BP systolic 136–167; BP diastolic 77–113; PULSE 63–77; RESP 16–19; TEMP 36.7–37.11408; O2SAT 97–100
[2024-10-15] VITALS (9 sets, daily range): BP systolic 127–148; BP diastolic 84–104; PULSE 64–78; RESP 18–20; TEMP 36.3918–36.8; O2SAT 98
[2024-10-15 11:20] LABS: BASOPHILS % 0.7 % (0.0-2.0); DIFFERENTIAL COMMENT 0; EOSINOPHILS % 5.4 % (0.0-5.0); HEMATOCRIT. 23.8 % (42.0-52.0); HEMOGLOBIN. 7.5 g/dL (14.0-18.0); LYMPHOCYTES % 26.3 % (20.0-50.0); MEAN CORPUSCULAR HEMOGLOBIN 24.2 pg (28.0-32.0); MEAN CORPUSCULAR HGB CONC 31.3 g/dL (31.0-37.0); MEAN CORPUSCULAR VOLUME 77.2 fL (80.0-94.0); MONOCYTES % 8.2 % (2.0-8.0); NEUTROPHILS % 59.4 % (40.0-76.0); PLATELET 240 x1000/uL (130-400); RED BLOOD CELL COUNT 3.08 mill/uL (4.7-6.1); RED CELL DISTRIBUTION WIDTH 16.8 % (11.6-14.6); WHITE BLOOD COUNT 7.9 x1000/uL (4.5-11.0)
[2024-10-15 11:30] LABS: POTASSIUM 5.1 mEq/L (3.5-5.1)
[2024-10-15 11:44] LABS: CREATININE 9.5 mg/dL (0.6-1.3)
[2024-10-16 04:00] VITALS: BP 142/80; PULSE 74; RESP 20; TEMP 36.8
[2024-10-16 08:00] VITALS: BP 136/76; PULSE 75; RESP 18; TEMP 36.4
[2024-10-16 12:00] VITALS: BP 154/80; PULSE 75; RESP 18; TEMP 36.4
[2024-10-16 16:00] VITALS: BP 142/72; PULSE 75; RESP 18; TEMP 36.4
[2024-10-17] VITALS (7 sets, daily range): BP systolic 127–151; BP diastolic 75–100; PULSE 74–79; RESP 18–20; TEMP 36.89184–37.1; O2SAT 98
[2024-10-17] MEDS: METHADONE HCL 5MG TABLET PO SCH (11:04)
[2024-10-17] MEDS: METHADONE HCL 10MG TABLET PO SCH (11:04)
[2024-10-17] MEDS: POLYETHYLENE GLYCOL 3350 (17GM) 1 DOSE PACK PO PRN (18:16)
[2024-10-17] MEDS ORDERED: NALOXONE HCL 0.4MG/ML VIAL IV PRN (18:45)
[2024-10-17] MEDS: HYDROCODONE/ACETAMINOPHEN 5/325MG TABLET PO PRN (18:53)
[2024-10-18 06:00] VITALS: BP 141/99; PULSE 79; RESP 19; TEMP 36.4; O2SAT 98
[2024-10-18 08:00] VITALS: BP 144/94; PULSE 78; RESP 19; TEMP 36.8; O2SAT 99
[2024-10-18 09:38] LABS: POTASSIUM 5.2 mEq/L (3.5-5.1)
[2024-10-18 09:53] LABS: CREATININE 10.9 mg/dL (0.6-1.3)
[2024-10-18 09:59] LABS: BASOPHILS % 0.6 % (0.0-2.0); DIFFERENTIAL COMMENT 0; EOSINOPHILS % 5.1 % (0.0-5.0); HEMATOCRIT. 22.5 % (42.0-52.0); HEMOGLOBIN. 7.1 g/dL (14.0-18.0); LYMPHOCYTES % 26.3 % (20.0-50.0); MEAN CORPUSCULAR HEMOGLOBIN 23.7 pg (28.0-32.0); MEAN CORPUSCULAR HGB CONC 31.5 g/dL (31.0-37.0); MEAN CORPUSCULAR VOLUME 75.1 fL (80.0-94.0); MONOCYTES % 6.5 % (2.0-8.0); NEUTROPHILS % 61.5 % (40.0-76.0); PLATELET 208 x1000/uL (130-400); RED CELL DISTRIBUTION WIDTH 16.8 % (11.6-14.6); WHITE BLOOD COUNT 7.6 x1000/uL (4.5-11.0)
[2024-10-18 12:00] VITALS: BP 139/80; PULSE 75; RESP 18; TEMP 36.6; O2SAT 99
[2024-10-18 16:00] VITALS: BP 146/79; PULSE 77; RESP 19; TEMP 36.8; O2SAT 99
[2024-10-18 20:00] VITALS: BP 130/93
[2024-10-19] VITALS (16 sets, daily range): BP systolic 132–156; BP diastolic 92–105; PULSE 66–80; RESP 16–20; TEMP 36.22512–37.2252; O2SAT 96–100
[2024-10-19 08:26] LABS: CHLORIDE 98 mEq/L (98-107); SODIUM 135 mEq/L (136-145)
[2024-10-19 08:27] LABS: CALCIUM 9.2 mg/dL (8.7-10.4); CARBON DIOXIDE 27 mEq/L (21-32)
[2024-10-19 08:32] LABS: GLUCOSE 77 mg/dL (70-105); UREA NITROGEN BLOOD 64 mg/dL (9-23)
[2024-10-19 08:34] LABS: PHOSPHORUS 7.1 mg/dL (2.5-4.9)
[2024-10-19 08:39] LABS: BASOPHILS % 0.6 % (0.0-2.0); DIFFERENTIAL COMMENT 0; EOSINOPHILS % 5.5 % (0.0-5.0); HEMATOCRIT. 21.7 % (42.0-52.0); MEAN CORPUSCULAR HEMOGLOBIN 24.6 pg (28.0-32.0); MEAN CORPUSCULAR HGB CONC 31.8 g/dL (31.0-37.0); MEAN CORPUSCULAR VOLUME 77.4 fL (80.0-94.0); MONOCYTES % 6.7 % (2.0-8.0); NEUTROPHILS % 60.2 % (40.0-76.0); PLATELET 204 x1000/uL (130-400); RED CELL DISTRIBUTION WIDTH 16.5 % (11.6-14.6); WHITE BLOOD COUNT 7.7 x1000/uL (4.5-11.0)
[2024-10-19 09:20] LABS: HEMOGLOBIN. 6.9 g/dL (14.0-18.0)
[2024-10-19] MEDS: INSULIN REGULAR (HUMULIN R) 1000UNITS/10ML VIAL IV SCH (10:40)
[2024-10-19] MEDS: SODIUM ZIRCONIUM CYCLOSILICATE 10GM/PACKET PO SCH (11:40)
[2024-10-19] MEDS: DEXTROSE 50% WATER 50ML SYRINGE IV SCH (11:40)
[2024-10-19] MEDS: SODIUM BICARBONATE 8.4% 50MEQ/50ML SYR IV SCH (11:41)
[2024-10-19 15:36] LABS: POTASSIUM 3.9 mEq/L (3.5-5.1)
[2024-10-20] VITALS (11 sets, daily range): BP systolic 147–154; BP diastolic 98–115; PULSE 70–86; RESP 16–20; TEMP 36.44736–37.1; O2SAT 98–100
[2024-10-20 07:01] LABS: BASOPHILS % 0.6 % (0.0-2.0); DIFFERENTIAL COMMENT 0; EOSINOPHILS % 5.7 % (0.0-5.0); HEMOGLOBIN. 7.6 g/dL (14.0-18.0); LYMPHOCYTES % 29.5 % (20.0-50.0); MEAN CORPUSCULAR HGB CONC 31.7 g/dL (31.0-37.0); MEAN CORPUSCULAR VOLUME 75.8 fL (80.0-94.0); MEAN PLATELET VOLUME 8.4 fl (7.4-10.4); MONOCYTES % 8.6 % (2.0-8.0); NEUTROPHILS % 55.6 % (40.0-76.0); PLATELET 197 x1000/uL (130-400); RED BLOOD CELL COUNT 3.17 mill/uL (4.7-6.1); WHITE BLOOD COUNT 7.4 x1000/uL (4.5-11.0)
[2024-10-20 07:47] LABS: POTASSIUM 5.8 mEq/L (3.5-5.1)
[2024-10-20 07:48] LABS: CALCIUM 9.2 mg/dL (8.7-10.4)
[2024-10-20] MEDS: SODIUM POLYSTYRENE SULFONATE 15 G/60 ML BOT PO NR (11:35)
[2024-10-21 08:00] VITALS: BP 136/96; PULSE 85; RESP 16; TEMP 36.7; O2SAT 100
[2024-10-21 12:00] VITALS: BP 141/106; PULSE 79; RESP 14; TEMP 36.6; O2SAT 99
[2024-10-21 12:15] LABS: HEMATOCRIT 24.9 % (42.0-52.0); HEMOGLOBIN 7.9 g/dL (14.0-18.0); MEAN CORPUSCULAR HEMOGLOBIN 24.7 pg (28.0-32.0); MEAN CORPUSCULAR HGB CONC 31.7 g/dL (31.0-37.0); MEAN CORPUSCULAR VOLUME 77.9 fL (80.0-94.0); PLATELET 197 x1000/uL (130-400); RED BLOOD CELL COUNT 3.19 mill/uL (4.7-6.1); RED CELL DISTRIBUTION WIDTH 17.1 % (11.6-14.6)
[2024-10-21 12:23] LABS: POTASSIUM 4.8 mEq/L (3.5-5.1)
[2024-10-21 12:24] LABS: CALCIUM 8.9 mg/dL (8.7-10.4)
[2024-10-21 12:43] LABS: CREATININE 10.2 mg/dL (0.6-1.3)
[2024-10-21 16:00] VITALS: BP 138/103; PULSE 78; RESP 16; TEMP 36.7; O2SAT 99
[2024-10-21 20:00] VITALS: BP 140/100; PULSE 78; RESP 15; TEMP 36.6; O2SAT 97
[2024-10-22] VITALS (11 sets, daily range): BP systolic 130–148; BP diastolic 78–107; PULSE 71–90; RESP 17–20; TEMP 36.3918–36.8; O2SAT 95–100
[2024-10-22 13:29] LABS: BASOPHILS % 0.6 % (0.0-2.0); DIFFERENTIAL COMMENT 0; EOSINOPHILS % 4.4 % (0.0-5.0); HEMOGLOBIN. 8.7 g/dL (14.0-18.0); LYMPHOCYTES % 20.5 % (20.0-50.0); MEAN CORPUSCULAR HEMOGLOBIN 23.4 pg (28.0-32.0); MEAN CORPUSCULAR HGB CONC 31.2 g/dL (31.0-37.0); MEAN CORPUSCULAR VOLUME 74.9 fL (80.0-94.0); MEAN PLATELET VOLUME 8.2 fl (7.4-10.4); NEUTROPHILS % 68.5 % (40.0-76.0); PLATELET 225 x1000/uL (130-400); RED BLOOD CELL COUNT 3.73 mill/uL (4.7-6.1); RED CELL DISTRIBUTION WIDTH 17.5 % (11.6-14.6); WHITE BLOOD COUNT 8.7 x1000/uL (4.5-11.0)
[2024-10-22 13:48] LABS: POTASSIUM 3.6 mEq/L (3.5-5.1)
[2024-10-22 13:50] LABS: CALCIUM 9.6 mg/dL (8.7-10.4)
[2024-10-22 13:58] LABS: CREATININE 6.4 mg/dL (0.6-1.3)
[2024-10-23] VITALS: BP 138/89; PULSE 79; RESP 18; TEMP 36.6; O2SAT 97
[2024-10-23 08:00] VITALS: BP 139/98; PULSE 76; RESP 19; TEMP 36.6; O2SAT 98
[2024-10-23 12:00] VITALS: BP 130/99; PULSE 71; RESP 19; TEMP 36.8; O2SAT 96
[2024-10-23] MEDS ORDERED: NALOXONE HCL 0.4MG/ML VIAL IV PRN (13:30)
[2024-10-23] MEDS: HYDROCODONE/ACETAMINOPHEN 5/325MG TABLET PO PRN (14:06)
[2024-10-23 20:00] VITALS: BP 147/100; PULSE 95; RESP 19; TEMP 36.2; O2SAT 99
[2024-10-24] VITALS (10 sets, daily range): BP systolic 126–156; BP diastolic 84–112; PULSE 78–89; RESP 16–19; TEMP 35.9–36.78072; O2SAT 97–99
[2024-10-24] MEDS: METHADONE HCL 5MG TABLET PO SCH (08:58)
[2024-10-24] MEDS: METHADONE HCL 10MG TABLET PO SCH (08:59)
[2024-10-24] MEDS ORDERED: METHADONE HCL 5MG/5ML ORAL SOLN UDC PO SCH (09:00)
[2024-10-25 08:00] VITALS: BP 135/90; PULSE 80; RESP 20; TEMP 36.7; O2SAT 99
[2024-10-25 12:00] VITALS: TEMP 36.1
[2024-10-25 20:00] VITALS: BP 135/99; PULSE 82; RESP 18; TEMP 36.7; O2SAT 99
[2024-10-25] MEDS: TRAZODONE HCL 50MG TABLET PO SCH (20:52)
[2024-10-26] VITALS (8 sets, daily range): BP systolic 102–148; BP diastolic 65–102; PULSE 71–87; RESP 18–20; TEMP 36.3–36.5; O2SAT 100
[2024-10-27 06:41] LABS: CALCIUM 9.6 mg/dL (8.7-10.4)
[2024-10-27 07:16] LABS: CREATININE 11.5 mg/dL (0.6-1.3)
[2024-10-27 07:23] LABS: BASOPHILS % 0.7 % (0.0-2.0); DIFFERENTIAL COMMENT 0; EOSINOPHILS % 5.6 % (0.0-5.0); HEMATOCRIT. 22.2 % (42.0-52.0); HEMOGLOBIN. 7.1 g/dL (14.0-18.0); MEAN CORPUSCULAR VOLUME 75.1 fL (80.0-94.0); MEAN PLATELET VOLUME 8.4 fl (7.4-10.4); MONOCYTES % 6.5 % (2.0-8.0); NEUTROPHILS % 49.2 % (40.0-76.0); PLATELET 187 x1000/uL (130-400); RED BLOOD CELL COUNT 2.96 mill/uL (4.7-6.1); RED CELL DISTRIBUTION WIDTH 17.6 % (11.6-14.6); WHITE BLOOD COUNT 6.8 x1000/uL (4.5-11.0)
[2024-10-27 08:00] VITALS: BP 137/101; PULSE 87; RESP 19; TEMP 36.6; O2SAT 99
[2024-10-27 12:00] VITALS: BP 131/93; PULSE 80; RESP 18; TEMP 36.8; O2SAT 99
[2024-10-27 16:00] VITALS: BP 127/86; PULSE 77; RESP 18; TEMP 36.9; O2SAT 99
[2024-10-27 20:00] VITALS: BP 140/100; PULSE 88; RESP 19; TEMP 37.4; O2SAT 99
[2024-10-28] VITALS (11 sets, daily range): BP systolic 118–147; BP diastolic 92–113; PULSE 51–92; RESP 16–20; TEMP 36.22512–37.3; O2SAT 96–100
[2024-10-28 14:30] LABS: POTASSIUM 4.8 mEq/L (3.5-5.1)
[2024-10-28 14:31] LABS: CALCIUM 9.4 mg/dL (8.7-10.4)
[2024-10-28 14:41] LABS: BASOPHILS % 0.7 % (0.0-2.0); DIFFERENTIAL COMMENT 0; EOSINOPHILS % 4.3 % (0.0-5.0); HEMATOCRIT. 23.5 % (42.0-52.0); HEMOGLOBIN. 7.7 g/dL (14.0-18.0); LYMPHOCYTES % 26.6 % (20.0-50.0); MEAN CORPUSCULAR HEMOGLOBIN 24.7 pg (28.0-32.0); MEAN CORPUSCULAR HGB CONC 32.6 g/dL (31.0-37.0); MEAN CORPUSCULAR VOLUME 75.7 fL (80.0-94.0); MEAN PLATELET VOLUME 8.5 fl (7.4-10.4); MONOCYTES % 5.8 % (2.0-8.0); NEUTROPHILS % 62.6 % (40.0-76.0); PLATELET 211 x1000/uL (130-400); RED BLOOD CELL COUNT 3.11 mill/uL (4.7-6.1); WHITE BLOOD COUNT 7.5 x1000/uL (4.5-11.0)
[2024-10-28 14:59] LABS: CREATININE 10.6 mg/dL (0.6-1.3)
[2024-10-29 08:00] VITALS: BP 133/100; PULSE 76; RESP 20; TEMP 36.1; O2SAT 100
[2024-10-29 12:00] VITALS: BP 133/100; PULSE 81; RESP 20; TEMP 36.7; O2SAT 99
[2024-10-29 16:00] VITALS: BP 138/99; PULSE 78; RESP 20; TEMP 36.7; O2SAT 98
[2024-10-29 18:08] VITALS: BP 138/99; PULSE 78; RESP 20; TEMP 36.7; O2SAT 98
[2024-10-30] VITALS (21 sets, daily range): BP systolic 127–154; BP diastolic 88–110; PULSE 73–87; RESP 16–20; TEMP 36.3918–37.00296; O2SAT 97–100
[2024-10-30 07:11] LABS: CALCIUM 9.5 mg/dL (8.7-10.4)
[2024-10-30 07:25] LABS: BASOPHILS % 0.8 % (0.0-2.0); CREATININE 13.8 mg/dL (0.6-1.3); DIFFERENTIAL COMMENT 0; EOSINOPHILS % 4.4 % (0.0-5.0); LYMPHOCYTES % 32.4 % (20.0-50.0); MEAN CORPUSCULAR HEMOGLOBIN 24.5 pg (28.0-32.0); MEAN CORPUSCULAR HGB CONC 32.1 g/dL (31.0-37.0); MEAN CORPUSCULAR VOLUME 76.4 fL (80.0-94.0); MEAN PLATELET VOLUME 8.3 fl (7.4-10.4); MONOCYTES % 7.2 % (2.0-8.0); NEUTROPHILS % 55.2 % (40.0-76.0); PLATELET 181 x1000/uL (130-400); RED BLOOD CELL COUNT 2.69 mill/uL (4.7-6.1); RED CELL DISTRIBUTION WIDTH 18.2 % (11.6-14.6); WHITE BLOOD COUNT 6.7 x1000/uL (4.5-11.0)
[2024-10-30 07:52] LABS: HEMATOCRIT. 20.6 % (42.0-52.0); HEMOGLOBIN. 6.6 g/dL (14.0-18.0)
[2024-10-30] MEDS: DEXTROSE 50% WATER 50ML SYRINGE IV NR (08:00)
[2024-10-30] MEDS: INSULIN REGULAR (HUMULIN R) 1000UNITS/10ML VIAL IV NR (08:00)
[2024-10-30] MEDS: CALCIUM GLUCONATE 1GM PREMIX 50 ML IV NR (09:00)
[2024-10-30] MEDS: METHADONE HCL 10MG TABLET PO SCH (10:11)
[2024-10-30] MEDS: METHADONE HCL 5MG TABLET PO SCH (10:12)
[2024-10-30 12:43] LABS: POTASSIUM 5.2 mEq/L (3.5-5.1)
[2024-10-30] MEDS: HYDROCODONE/ACETAMINOPHEN 5/325MG TABLET PO PRN (18:16)
[2024-10-30 22:25] LABS: HEMATOCRIT 23.3 % (42.0-52.0); HEMOGLOBIN 7.8 g/dL (14.0-18.0)
[2024-10-31 07:30] LABS: BASOPHILS % 0.6 % (0.0-2.0); DIFFERENTIAL COMMENT 0; EOSINOPHILS % 4.4 % (0.0-5.0); HEMATOCRIT. 23.7 % (42.0-52.0); HEMOGLOBIN. 7.8 g/dL (14.0-18.0); LYMPHOCYTES % 31.7 % (20.0-50.0); MEAN CORPUSCULAR HEMOGLOBIN 25.5 pg (28.0-32.0); MEAN CORPUSCULAR HGB CONC 32.9 g/dL (31.0-37.0); MEAN CORPUSCULAR VOLUME 77.5 fL (80.0-94.0); MEAN PLATELET VOLUME 8.3 fl (7.4-10.4); MONOCYTES % 6.9 % (2.0-8.0); NEUTROPHILS % 56.4 % (40.0-76.0); PLATELET 187 x1000/uL (130-400); RED BLOOD CELL COUNT 3.06 mill/uL (4.7-6.1); WHITE BLOOD COUNT 6.7 x1000/uL (4.5-11.0)
[2024-10-31 07:36] LABS: CALCIUM 9.7 mg/dL (8.7-10.4); POTASSIUM 5.9 mEq/L (3.5-5.1)
[2024-10-31 07:46] LABS: CREATININE 12.7 mg/dL (0.6-1.3)
[2024-10-31 08:00] VITALS: BP 140/78; PULSE 82; RESP 19; TEMP 36.8; O2SAT 99
[2024-10-31] MEDS ORDERED: DEXTROSE 50% WATER 50ML SYRINGE IV ONE (09:45)
[2024-10-31] MEDS: SODIUM ZIRCONIUM CYCLOSILICATE 10GM/PACKET PO NR (10:04)
[2024-10-31] MEDS: DEXTROSE 50% WATER 50ML SYRINGE IV NR ×2 (10:05→22:34)
[2024-10-31] MEDS: INSULIN REGULAR (HUMULIN R) 1000UNITS/10ML VIAL IV NR ×2 (10:25→22:34)
[2024-10-31] MEDS: CALCIUM GLUCONATE 1GM PREMIX 50 ML IV NR (11:05)
[2024-10-31 12:00] VITALS: BP 143/108; PULSE 81; RESP 19; TEMP 36.7; O2SAT 98
[2024-10-31 16:00] VITALS: BP 133/104; PULSE 66; RESP 18; TEMP 36.7; O2SAT 99
[2024-10-31 20:00] VITALS: BP 144/105; PULSE 85; RESP 20; TEMP 36.6; O2SAT 100
[2024-10-31] MEDS: SODIUM BICARBONATE 8.4% 50MEQ/50ML SYR IV NR (22:34)
[2024-11-01] VITALS (12 sets, daily range): BP systolic 112–154; BP diastolic 78–99; PULSE 63–90; RESP 16–20; TEMP 36.1–37.2; O2SAT 98–100
[2024-11-01] MEDS ORDERED: SODIUM ZIRCONIUM CYCLOSILICATE 10GM/PACKET PO SCH (11:00)
[2024-11-01 17:01] LABS: HEMATOCRIT 23.2 % (42.0-52.0); HEMOGLOBIN 7.7 g/dL (14.0-18.0); MEAN CORPUSCULAR HEMOGLOBIN 25.3 pg (28.0-32.0); MEAN CORPUSCULAR VOLUME 76.7 fL (80.0-94.0); PLATELET 183 x1000/uL (130-400); RED BLOOD CELL COUNT 3.03 mill/uL (4.7-6.1); RED CELL DISTRIBUTION WIDTH 18.6 % (11.6-14.6); WHITE BLOOD COUNT 6.2 x1000/uL (4.5-11.0)
[2024-11-01 17:12] LABS: POTASSIUM 4.7 mEq/L (3.5-5.1)
[2024-11-01 17:13] LABS: CALCIUM 9.1 mg/dL (8.7-10.4)
[2024-11-01 17:19] LABS: CREATININE 9.3 mg/dL (0.6-1.3)
[2024-11-01] MEDS: EPOETIN ALFA-EPBX 4,000 UNIT/ML VIAL SUBCUT SCH (21:00)
[2024-11-02 08:00] VITALS: BP 156/117; PULSE 91; RESP 20; TEMP 36.1; O2SAT 98
[2024-11-02 11:53] VITALS: PULSE 93; RESP 16; O2SAT 98
[2024-11-02] MEDS: IPRATROPIUM/ALBUTEROL 0.5-3(2.5)MG/3ML NEB HHN PRN (11:53)
[2024-11-02 12:00] VITALS: BP 177/118; PULSE 102; RESP 20; TEMP 36.7; O2SAT 98
[2024-11-02 16:00] VITALS: BP 134/94; PULSE 85; RESP 20; TEMP 36.4; O2SAT 100
[2024-11-02 20:00] VITALS: BP 151/113; PULSE 91; RESP 20; TEMP 36.9; O2SAT 100
[2024-11-02 20:15] VITALS: PULSE 93; RESP 18; RESP 20; O2SAT 98
[2024-11-02 21:58] LABS: CALCIUM 9.2 mg/dL (8.7-10.4)
[2024-11-03] VITALS (10 sets, daily range): BP systolic 128–164; BP diastolic 10–104; PULSE 82–100; RESP 18–20; TEMP 36.33624–37.2; O2SAT 96–100
[2024-11-03 06:54] LABS: POTASSIUM 3.4 mEq/L (3.5-5.1)
[2024-11-03 07:19] LABS: BASOPHILS % 0.7 % (0.0-2.0); DIFFERENTIAL COMMENT 0; EOSINOPHILS % 3.6 % (0.0-5.0); HEMATOCRIT. 21.3 % (42.0-52.0); LYMPHOCYTES % 25.2 % (20.0-50.0); MEAN CORPUSCULAR HEMOGLOBIN 24.9 pg (28.0-32.0); MEAN CORPUSCULAR HGB CONC 32.8 g/dL (31.0-37.0); MEAN PLATELET VOLUME 8.6 fl (7.4-10.4); MONOCYTES % 7.5 % (2.0-8.0); PLATELET 171 x1000/uL (130-400); RED BLOOD CELL COUNT 2.81 mill/uL (4.7-6.1); RED CELL DISTRIBUTION WIDTH 19.2 % (11.6-14.6); WHITE BLOOD COUNT 7.1 x1000/uL (4.5-11.0)
[2024-11-03] MEDS: SODIUM ZIRCONIUM CYCLOSILICATE 10GM/PACKET PO SCH (09:02)
[2024-11-03 09:16] LABS: CREATININE 8.9 mg/dL (0.6-1.3)
[2024-11-03 09:22] LABS: CALCIUM 5.9 mg/dL (8.7-10.4)
[2024-11-03] MEDS ORDERED: NALOXONE HCL 0.4MG/ML VIAL IV PRN (11:00)
[2024-11-03] MEDS: POTASSIUM CHLORIDE 20MEQ TABLET SR PO NR (12:29)
[2024-11-03] MEDS: CALCIUM 1250MG TABLET (500MG ELEMENTAL CALCIUM) PO SCH (12:29)
[2024-11-04] VITALS (12 sets, daily range): BP systolic 140–159; BP diastolic 99–122; PULSE 96–111; RESP 14–24; TEMP 35.8–36.83628; O2SAT 97–99
[2024-11-04 05:52] LABS: CARBON DIOXIDE 27 mEq/L (21-32); CHLORIDE 99 mEq/L (98-107); POTASSIUM 4.9 mEq/L (3.5-5.1); SODIUM 139 mEq/L (136-145)
[2024-11-04 05:53] LABS: CALCIUM 9.6 mg/dL (8.7-10.4)
[2024-11-04 05:58] LABS: GLUCOSE 83 mg/dL (70-105); UREA NITROGEN BLOOD 64 mg/dL (9-23)
[2024-11-04 06:00] LABS: PHOSPHORUS 5.1 mg/dL (2.5-4.9)
[2024-11-04 06:05] LABS: BASOPHILS % 0.4 % (0.0-2.0); DIFFERENTIAL COMMENT 0; EOSINOPHILS % 4.4 % (0.0-5.0); LYMPHOCYTES % 19.4 % (20.0-50.0); MEAN CORPUSCULAR HEMOGLOBIN 24.8 pg (28.0-32.0); MEAN CORPUSCULAR HGB CONC 32.2 g/dL (31.0-37.0); MEAN CORPUSCULAR VOLUME 76.8 fL (80.0-94.0); MEAN PLATELET VOLUME 8.2 fl (7.4-10.4); MONOCYTES % 7.2 % (2.0-8.0); NEUTROPHILS % 68.6 % (40.0-76.0); PLATELET 145 x1000/uL (130-400); RED BLOOD CELL COUNT 2.52 mill/uL (4.7-6.1); RED CELL DISTRIBUTION WIDTH 19.2 % (11.6-14.6); WHITE BLOOD COUNT 6.2 x1000/uL (4.5-11.0)
[2024-11-04 06:08] LABS: HEPATITIS B SURFACE ANTIGEN NEGATIVE (Negative)
[2024-11-04 06:21] LABS: HEMATOCRIT. 19.4 % (42.0-52.0); HEMOGLOBIN. 6.3 g/dL (14.0-18.0)
[2024-11-04 06:29] LABS: HEPATITIS A AB IGM NEGATIVE (Negative); HEPATITIS B CORE AB IGM NEGATIVE (Negative)
[2024-11-04 06:30] LABS: HEPATITIS C AB REACTIVE (Pos) (Negative)
[2024-11-04 07:09] LABS: CREATININE 10.4 mg/dL (0.6-1.3)
[2024-11-04 13:58] LABS: BASOPHILS % 0.6 % (0.0-2.0); DIFFERENTIAL COMMENT 0; EOSINOPHILS % 3.8 % (0.0-5.0); HEMATOCRIT. 21.7 % (42.0-52.0); HEMOGLOBIN. 7.1 g/dL (14.0-18.0); LYMPHOCYTES % 18.5 % (20.0-50.0); MEAN CORPUSCULAR HEMOGLOBIN 25.7 pg (28.0-32.0); MEAN CORPUSCULAR HGB CONC 32.9 g/dL (31.0-37.0); MEAN CORPUSCULAR VOLUME 78.1 fL (80.0-94.0); MEAN PLATELET VOLUME 8.5 fl (7.4-10.4); MONOCYTES % 8.3 % (2.0-8.0); NEUTROPHILS % 68.8 % (40.0-76.0); PLATELET 174 x1000/uL (130-400); RED BLOOD CELL COUNT 2.77 mill/uL (4.7-6.1); RED CELL DISTRIBUTION WIDTH 19.3 % (11.6-14.6); WHITE BLOOD COUNT 7.2 x1000/uL (4.5-11.0)
[2024-11-04] MEDS: ACETAMINOPHEN 325MG TABLET PO PRN (20:35)
[2024-11-05] VITALS (16 sets, daily range): BP systolic 103–164; BP diastolic 95–111; PULSE 75–109; RESP 17–24; TEMP 36.6–37.1; O2SAT 95–98
[2024-11-05 08:58] LABS: BASOPHILS % 0.6 % (0.0-2.0); DIFFERENTIAL COMMENT 0; EOSINOPHILS % 3.7 % (0.0-5.0); HEMATOCRIT. 23.6 % (42.0-52.0); HEMOGLOBIN. 7.8 g/dL (14.0-18.0); LYMPHOCYTES % 18.2 % (20.0-50.0); MEAN CORPUSCULAR HEMOGLOBIN 25.4 pg (28.0-32.0); MEAN PLATELET VOLUME 8.4 fl (7.4-10.4); MONOCYTES % 5.5 % (2.0-8.0); PLATELET 166 x1000/uL (130-400); RED BLOOD CELL COUNT 3.07 mill/uL (4.7-6.1); RED CELL DISTRIBUTION WIDTH 19.3 % (11.6-14.6); WHITE BLOOD COUNT 7.6 x1000/uL (4.5-11.0)
[2024-11-05 09:01] LABS: POTASSIUM 5.4 mEq/L (3.5-5.1)
[2024-11-05 09:02] LABS: CALCIUM 9.3 mg/dL (8.7-10.4)
[2024-11-05 09:08] LABS: CREATININE 11.9 mg/dL (0.6-1.3)
[2024-11-06] VITALS: BP 141/103; PULSE 102; RESP 18; TEMP 36.7; O2SAT 95
[2024-11-06 04:00] VITALS: BP 122/94; PULSE 101; RESP 19; TEMP 36.8; O2SAT 96
[2024-11-06 08:00] VITALS: BP 137/100; PULSE 100; TEMP 36.7; O2SAT 100
[2024-11-06] MEDS: METHADONE HCL 5MG TABLET PO SCH (09:00)
[2024-11-06] MEDS: METHADONE HCL 10MG TABLET PO SCH (09:00)
[2024-11-06] MEDS: POLYETHYLENE GLYCOL 3350 (17GM) 1 DOSE PACK PO SCH (11:45)
[2024-11-06 12:00] VITALS: BP 136/86; PULSE 97; TEMP 36.5; O2SAT 100
[2024-11-06 16:00] VITALS: BP 137/84; PULSE 94; TEMP 37.2; O2SAT 98
[2024-11-06 20:00] VITALS: BP 132/100; PULSE 68; RESP 18; TEMP 36.5; O2SAT 95
[2024-11-06] MEDS: BUSPIRONE HCL 5MG TABLET PO SCH (20:42)
[2024-11-07] VITALS (17 sets, daily range): BP systolic 125–150; BP diastolic 81–114; PULSE 72–100; RESP 18–20; TEMP 36.50292–37.2; O2SAT 98–100
[2024-11-07] MEDS: HYDROCODONE/ACETAMINOPHEN 5/325MG TABLET PO PRN (17:25)
[2024-11-07 18:01] LABS: BASOPHILS % 0.4 % (0.0-2.0); DIFFERENTIAL COMMENT 0; LYMPHOCYTES % 17.3 % (20.0-50.0); MEAN CORPUSCULAR HEMOGLOBIN 24.5 pg (28.0-32.0); MEAN CORPUSCULAR HGB CONC 30.7 g/dL (31.0-37.0); MEAN CORPUSCULAR VOLUME 79.6 fL (80.0-94.0); MEAN PLATELET VOLUME 8.6 fl (7.4-10.4); MONOCYTES % 4.8 % (2.0-8.0); NEUTROPHILS % 70.5 % (40.0-76.0); PLATELET 144 x1000/uL (130-400); RED BLOOD CELL COUNT 2.35 mill/uL (4.7-6.1); RED CELL DISTRIBUTION WIDTH 19.8 % (11.6-14.6); WHITE BLOOD COUNT 5.9 x1000/uL (4.5-11.0)
[2024-11-07 18:11] LABS: POTASSIUM 5.6 mEq/L (3.5-5.1)
[2024-11-07 18:12] LABS: CALCIUM 9.7 mg/dL (8.7-10.4); HEMATOCRIT. 18.7 % (42.0-52.0); HEMOGLOBIN. 5.8 g/dL (14.0-18.0)
[2024-11-07 18:27] LABS: CREATININE 11.3 mg/dL (0.6-1.3)
[2024-11-07 21:16] LABS: HEMATOCRIT 21.8 % (42.0-52.0)
[2024-11-08] VITALS: BP 141/110; PULSE 94; RESP 18; TEMP 36.8; O2SAT 98
[2024-11-08 00:40] VITALS: BP 147/110; PULSE 89; RESP 18; TEMP 36.72516
[2024-11-08 04:00] VITALS: BP 144/107; PULSE 94; RESP 19; TEMP 36.9; O2SAT 99
[2024-11-08 05:20] VITALS: PULSE 76; RESP 20
[2024-11-08 20:00] VITALS: BP 141/109; PULSE 88; RESP 22; TEMP 36.3; O2SAT 96
[2024-11-08] MEDS: TRAZODONE HCL 50MG TABLET PO SCH (22:13)
[2024-11-09] VITALS (13 sets, daily range): BP systolic 129–146; BP diastolic 72–109; PULSE 72–98; RESP 16–21; TEMP 35.9–36.9; O2SAT 95–100
[2024-11-09 07:00] LABS: BASOPHILS % 0.8 % (0.0-2.0); DIFFERENTIAL COMMENT 0; EOSINOPHILS % 8.1 % (0.0-5.0); HEMATOCRIT. 23.8 % (42.0-52.0); HEMOGLOBIN. 7.8 g/dL (14.0-18.0); LYMPHOCYTES % 25.5 % (20.0-50.0); MEAN CORPUSCULAR HEMOGLOBIN 25.8 pg (28.0-32.0); MEAN CORPUSCULAR HGB CONC 32.9 g/dL (31.0-37.0); MEAN CORPUSCULAR VOLUME 78.6 fL (80.0-94.0); MEAN PLATELET VOLUME 8.1 fl (7.4-10.4); MONOCYTES % 5.6 % (2.0-8.0); PLATELET 185 x1000/uL (130-400); RED BLOOD CELL COUNT 3.03 mill/uL (4.7-6.1); RED CELL DISTRIBUTION WIDTH 19.1 % (11.6-14.6); WHITE BLOOD COUNT 6.5 x1000/uL (4.5-11.0)
[2024-11-09 07:03] LABS: CHLORIDE 106 mEq/L (98-107); POTASSIUM 4.3 mEq/L (3.5-5.1); SODIUM 141 mEq/L (136-145)
[2024-11-09 07:04] LABS: CALCIUM 7.9 mg/dL (8.7-10.4); CARBON DIOXIDE 24 mEq/L (21-32)
[2024-11-09 07:09] LABS: GLUCOSE 97 mg/dL (70-105); IRON 26 ug/dL (65-175); UREA NITROGEN BLOOD 63 mg/dL (9-23)
[2024-11-09 07:11] LABS: TOTAL IRON BINDING CAPACITY 247 ug/dl (250-425)
[2024-11-09 07:15] LABS: CREATININE 8.9 mg/dL (0.6-1.3)
[2024-11-09 14:22] LABS: VITAMIN B12 SERUM 588 pg/mL (211-911)
[2024-11-09 14:23] LABS: FERRITIN 256 ng/mL (22-322)
[2024-11-10] VITALS: BP 138/101; PULSE 82; RESP 18; TEMP 36.5; O2SAT 99
[2024-11-10 08:00] VITALS: BP 143/99; PULSE 85; RESP 19; TEMP 36.8; O2SAT 98
[2024-11-10 12:00] VITALS: BP 139/97; PULSE 83; RESP 19; TEMP 36.8; O2SAT 98
[2024-11-10 16:00] VITALS: BP 140/98; PULSE 86; RESP 19; TEMP 36.9; O2SAT 98
[2024-11-10 20:00] VITALS: BP 139/100; PULSE 82; RESP 20; TEMP 37.1; O2SAT 96
[2024-11-11] VITALS (9 sets, daily range): BP systolic 111–154; BP diastolic 88–105; PULSE 72–86; RESP 18–20; TEMP 36.114–37.2; O2SAT 98–100
[2024-11-11] MEDS: IPRATROPIUM/ALBUTEROL 0.5-3(2.5)MG/3ML NEB HHN PRN (01:16)
[2024-11-11 13:21] LABS: BASOPHILS % 0.5 % (0.0-2.0); DIFFERENTIAL COMMENT 0; EOSINOPHILS % 4.5 % (0.0-5.0); HEMATOCRIT. 26.8 % (42.0-52.0); HEMOGLOBIN. 8.5 g/dL (14.0-18.0); LYMPHOCYTES % 14.1 % (20.0-50.0); MEAN CORPUSCULAR HEMOGLOBIN 25.1 pg (28.0-32.0); MEAN CORPUSCULAR HGB CONC 31.8 g/dL (31.0-37.0); MEAN CORPUSCULAR VOLUME 79.1 fL (80.0-94.0); MEAN PLATELET VOLUME 7.6 fl (7.4-10.4); MONOCYTES % 5.4 % (2.0-8.0); NEUTROPHILS % 75.5 % (40.0-76.0); PLATELET 231 x1000/uL (130-400); RED BLOOD CELL COUNT 3.38 mill/uL (4.7-6.1); RED CELL DISTRIBUTION WIDTH 19.3 % (11.6-14.6); WHITE BLOOD COUNT 7.4 x1000/uL (4.5-11.0)
[2024-11-11 13:44] LABS: POTASSIUM 3.8 mEq/L (3.5-5.1)
[2024-11-11 13:45] LABS: CALCIUM 9.6 mg/dL (8.7-10.4)
[2024-11-11 14:10] LABS: CREATININE 6.6 mg/dL (0.6-1.3)
[2024-11-12] VITALS: BP 138/90; PULSE 86; RESP 16; TEMP 36.4; O2SAT 99
[2024-11-12 04:00] VITALS: BP 146/86; PULSE 80; RESP 14; TEMP 36.6; O2SAT 100
[2024-11-12 12:00] VITALS: BP 133/86; PULSE 83; RESP 17; TEMP 36.8; O2SAT 100
[2024-11-12 12:56] LABS: BASOPHILS % 0.4 % (0.0-2.0); EOSINOPHILS % 4.6 % (0.0-5.0); HEMATOCRIT. 25.9 % (42.0-52.0); HEMOGLOBIN. 8.1 g/dL (14.0-18.0); LYMPHOCYTES % 22.2 % (20.0-50.0); MEAN CORPUSCULAR HEMOGLOBIN 25.5 pg (28.0-32.0); MEAN CORPUSCULAR HGB CONC 31.2 g/dL (31.0-37.0); MEAN CORPUSCULAR VOLUME 81.6 fL (80.0-94.0); NEUTROPHILS % 66.8 % (40.0-76.0); PLATELET 227 x1000/uL (130-400); RED BLOOD CELL COUNT 3.18 mill/uL (4.7-6.1); RED CELL DISTRIBUTION WIDTH 19.7 % (11.6-14.6); WHITE BLOOD COUNT 6.7 x1000/uL (4.5-11.0)
[2024-11-12 13:10] LABS: CALCIUM 9.3 mg/dL (8.7-10.4); POTASSIUM 5.7 mEq/L (3.5-5.1)
[2024-11-12 13:21] LABS: CREATININE 9.8 mg/dL (0.6-1.3)
[2024-11-12] MEDS: HYDROCODONE/ACETAMINOPHEN 5/325MG TABLET PO PRN (14:56)
[2024-11-12] MEDS ORDERED: NALOXONE HCL 0.4MG/ML VIAL IV PRN (15:00)
[2024-11-12 16:00] VITALS: BP 148/92; PULSE 78; RESP 16; TEMP 37.1; O2SAT 99
[2024-11-12 20:00] VITALS: BP 123/93; PULSE 82; RESP 18; TEMP 36.8; O2SAT 100; O2SAT 96
[2024-11-13] VITALS (13 sets, daily range): BP systolic 123–148; BP diastolic 91–110; PULSE 75–88; RESP 16–20; TEMP 36.22512–36.7; O2SAT 1–100
[2024-11-13] MEDS: METHADONE HCL 5MG TABLET PO SCH (09:38)
[2024-11-13] MEDS: METHADONE HCL 10MG TABLET PO SCH (09:38)
[2024-11-13] MEDS ORDERED: HYDRALAZINE 10 MG in SODIUM CHLORIDE 0.9% 49.5 ML IV PRN (20:00)
[2024-11-13] MEDS ORDERED: HYDRALAZINE 20MG/ML VIAL IV PRN (20:00)
[2024-11-13] MEDS: HYDRALAZINE HCL 50MG TABLET PO SCH (21:28)
[2024-11-14] VITALS (14 sets, daily range): BP systolic 126–158; BP diastolic 85–101; PULSE 73–98; RESP 16–19; TEMP 36.3–36.9; O2SAT 95–100
[2024-11-14 08:04] LABS: BASOPHILS % 0.5 % (0.0-2.0); DIFFERENTIAL COMMENT 0; HEMATOCRIT. 24.7 % (42.0-52.0); LYMPHOCYTES % 19.8 % (20.0-50.0); MEAN CORPUSCULAR HEMOGLOBIN 25.6 pg (28.0-32.0); MEAN CORPUSCULAR HGB CONC 32.4 g/dL (31.0-37.0); MEAN PLATELET VOLUME 7.8 fl (7.4-10.4); MONOCYTES % 7.4 % (2.0-8.0); NEUTROPHILS % 68.3 % (40.0-76.0); PLATELET 222 x1000/uL (130-400); RED BLOOD CELL COUNT 3.13 mill/uL (4.7-6.1); RED CELL DISTRIBUTION WIDTH 19.6 % (11.6-14.6); WHITE BLOOD COUNT 6.7 x1000/uL (4.5-11.0)
[2024-11-14 08:10] LABS: CARBON DIOXIDE 29 mEq/L (21-32); CHLORIDE 99 mEq/L (98-107); POTASSIUM 5.4 mEq/L (3.5-5.1); SODIUM 139 mEq/L (136-145)
[2024-11-14 08:11] LABS: CALCIUM 9.6 mg/dL (8.7-10.4)
[2024-11-14 08:16] LABS: GLUCOSE 123 mg/dL (70-105); UREA NITROGEN BLOOD 63 mg/dL (9-23)
[2024-11-14 08:18] LABS: PHOSPHORUS 4.7 mg/dL (2.5-4.9)
[2024-11-14 09:10] LABS: CREATININE 9.7 mg/dL (0.6-1.3)
[2024-11-15 04:00] VITALS: BP 130/88; PULSE 76; RESP 18; TEMP 36.7; O2SAT 76
[2024-11-15 07:29] LABS: CALCIUM 9.5 mg/dL (8.7-10.4)
[2024-11-15 08:00] VITALS: BP 132/91; PULSE 81; RESP 20; TEMP 36.1; O2SAT 100
[2024-11-15 08:02] LABS: CREATININE 7.7 mg/dL (0.6-1.3)
[2024-11-15 12:00] VITALS: BP 128/93; PULSE 84; RESP 20; TEMP 36.7; O2SAT 100
[2024-11-15 16:00] VITALS: BP 144/105; PULSE 80; RESP 20; TEMP 36.1; O2SAT 99
[2024-11-15 20:00] VITALS: BP 138/102; PULSE 77; RESP 18; TEMP 36.3; O2SAT 95
[2024-11-16] VITALS (13 sets, daily range): BP systolic 107–144; BP diastolic 67–98; PULSE 72–84; RESP 16–18; TEMP 36.22512–37.1; O2SAT 95–100
[2024-11-17 08:00] VITALS: BP 151/104; PULSE 79; RESP 20; TEMP 36.7; O2SAT 100
[2024-11-17 12:00] VITALS: BP 130/97; PULSE 85; RESP 20; TEMP 36.6; O2SAT 100
[2024-11-17 20:00] VITALS: BP 132/100; PULSE 75; RESP 16; TEMP 36.8; O2SAT 97
[2024-11-17 22:12] LABS: BASOPHILS % 0.8 % (0.0-2.0); DIFFERENTIAL COMMENT 0; EOSINOPHILS % 5.4 % (0.0-5.0); HEMATOCRIT. 25.5 % (42.0-52.0); HEMOGLOBIN. 8.2 g/dL (14.0-18.0); MEAN CORPUSCULAR HEMOGLOBIN 25.3 pg (28.0-32.0); MEAN CORPUSCULAR HGB CONC 32.1 g/dL (31.0-37.0); MEAN CORPUSCULAR VOLUME 78.8 fL (80.0-94.0); MEAN PLATELET VOLUME 7.5 fl (7.4-10.4); MONOCYTES % 7.9 % (2.0-8.0); NEUTROPHILS % 51.9 % (40.0-76.0); PLATELET 234 x1000/uL (130-400); RED BLOOD CELL COUNT 3.23 mill/uL (4.7-6.1); RED CELL DISTRIBUTION WIDTH 19.6 % (11.6-14.6); WHITE BLOOD COUNT 5.5 x1000/uL (4.5-11.0)
[2024-11-17 22:28] LABS: POTASSIUM 4.8 mEq/L (3.5-5.1)
[2024-11-17 22:30] LABS: CALCIUM 9.4 mg/dL (8.7-10.4)
[2024-11-17 22:35] LABS: CREATININE 9.7 mg/dL (0.6-1.3)
[2024-11-18] VITALS (9 sets, daily range): BP systolic 134–154; BP diastolic 89–100; PULSE 74–88; RESP 18–19; TEMP 36.5–37.1; O2SAT 98–100
[2024-11-18] MEDS ORDERED: NALOXONE HCL 0.4MG/ML VIAL IV PRN (10:30)
[2024-11-18] MEDS: HYDROCODONE/ACETAMINOPHEN 5/325MG TABLET PO PRN (14:23)
[2024-11-19 04:00] VITALS: BP 128/86; PULSE 75; RESP 18; TEMP 36.7; O2SAT 98
[2024-11-19 07:03] LABS: CALCIUM 9.2 mg/dL (8.7-10.4)
[2024-11-19 07:20] LABS: BASOPHILS % 1.1 % (0.0-2.0); DIFFERENTIAL COMMENT 0; HEMATOCRIT. 25.1 % (42.0-52.0); HEMOGLOBIN. 8.1 g/dL (14.0-18.0); LYMPHOCYTES % 33.5 % (20.0-50.0); MEAN CORPUSCULAR HEMOGLOBIN 25.4 pg (28.0-32.0); MEAN CORPUSCULAR HGB CONC 32.2 g/dL (31.0-37.0); MEAN CORPUSCULAR VOLUME 78.9 fL (80.0-94.0); MEAN PLATELET VOLUME 7.8 fl (7.4-10.4); MONOCYTES % 9.1 % (2.0-8.0); NEUTROPHILS % 51.3 % (40.0-76.0); PLATELET 231 x1000/uL (130-400); RED BLOOD CELL COUNT 3.18 mill/uL (4.7-6.1); RED CELL DISTRIBUTION WIDTH 19.9 % (11.6-14.6); WHITE BLOOD COUNT 5.6 x1000/uL (4.5-11.0)
[2024-11-19 08:00] VITALS: BP 119/81; PULSE 75; RESP 20; TEMP 36.6; O2SAT 75
[2024-11-19 08:18] LABS: CREATININE 9.7 mg/dL (0.6-1.3)
[2024-11-19 12:00] VITALS: BP 139/100; PULSE 84; RESP 20; TEMP 36.8; O2SAT 100
[2024-11-19 16:00] VITALS: BP 124/84; PULSE 85; RESP 20; TEMP 36.7; O2SAT 100
[2024-11-19 20:00] VITALS: BP 144/97; PULSE 83; RESP 18; TEMP 36.5; O2SAT 99
[2024-11-20] VITALS (11 sets, daily range): BP systolic 124–146; BP diastolic 64–92; PULSE 75–87; RESP 17–19; TEMP 36.7–37.00296; O2SAT 98–100
[2024-11-20 09:42] LABS: POTASSIUM 4.9 mEq/L (3.5-5.1)
[2024-11-20 09:44] LABS: CALCIUM 9.1 mg/dL (8.7-10.4)
[2024-11-20 10:00] LABS: BASOPHILS % 0.6 % (0.0-2.0); DIFFERENTIAL COMMENT 0; EOSINOPHILS % 3.5 % (0.0-5.0); HEMATOCRIT. 26.4 % (42.0-52.0); HEMOGLOBIN. 8.3 g/dL (14.0-18.0); LYMPHOCYTES % 24.1 % (20.0-50.0); MEAN CORPUSCULAR HEMOGLOBIN 24.8 pg (28.0-32.0); MEAN CORPUSCULAR HGB CONC 31.3 g/dL (31.0-37.0); MEAN CORPUSCULAR VOLUME 79.2 fL (80.0-94.0); MEAN PLATELET VOLUME 7.8 fl (7.4-10.4); MONOCYTES % 7.9 % (2.0-8.0); NEUTROPHILS % 63.9 % (40.0-76.0); PLATELET 233 x1000/uL (130-400); RED BLOOD CELL COUNT 3.33 mill/uL (4.7-6.1); RED CELL DISTRIBUTION WIDTH 20.2 % (11.6-14.6); WHITE BLOOD COUNT 6.1 x1000/uL (4.5-11.0)
[2024-11-20 10:12] LABS: CREATININE 11.7 mg/dL (0.6-1.3)
[2024-11-20] MEDS ORDERED: HYDR50TA40 MT (16:46)
== END 2024-11-20 19:12 | disposition home or self-care (01) | DRG 425 ==
LOC: ER 13:59 → 8WST 16:11 → EDBEDREQTM 16:12 → EDBEDREQ 16:12 → 6WST 07-27 15:33 → 8EST 08-15 12:00 → 8WST 08-18 14:56 → 4WST 08-25 21:44 → 8EST 09-23 13:41
PROVIDERS: ADMIT Internal Medicine; ATTEND Internal Medicine
PROC: 5A1D70Z Performance of Urinary Filtration, Intermittent, Less than 6 Hours Per Day (ICD-10-PCS; principal; 2024-07-20)
PROC: GZ56ZZZ Individual Psychotherapy, Supportive (ICD-10-PCS; 2024-07-20)
PROC: 5A1D70Z Performance of Urinary Filtration, Intermittent, Less than 6 Hours Per Day (ICD-10-PCS; 2024-07-21)
PROC: 5A1D70Z Performance of Urinary Filtration, Intermittent, Less than 6 Hours Per Day (ICD-10-PCS; 2024-07-23)
PROC: 5A1D70Z Performance of Urinary Filtration, Intermittent, Less than 6 Hours Per Day (ICD-10-PCS; 2024-07-25)
PROC: 5A1D70Z Performance of Urinary Filtration, Intermittent, Less than 6 Hours Per Day (ICD-10-PCS; 2024-07-27)
PROC: 5A1D70Z Performance of Urinary Filtration, Intermittent, Less than 6 Hours Per Day (ICD-10-PCS; 2024-07-29)
PROC: 5A1D70Z Performance of Urinary Filtration, Intermittent, Less than 6 Hours Per Day (ICD-10-PCS; 2024-07-30)
PROC: 5A1D70Z Performance of Urinary Filtration, Intermittent, Less than 6 Hours Per Day (ICD-10-PCS; 2024-08-01)
PROC: 5A1D70Z Performance of Urinary Filtration, Intermittent, Less than 6 Hours Per Day (ICD-10-PCS; 2024-08-02)
PROC: 5A1D70Z Performance of Urinary Filtration, Intermittent, Less than 6 Hours Per Day (ICD-10-PCS; 2024-08-04)
PROC: 5A1D70Z Performance of Urinary Filtration, Intermittent, Less than 6 Hours Per Day (ICD-10-PCS; 2024-08-06)
PROC: 5A1D70Z Performance of Urinary Filtration, Intermittent, Less than 6 Hours Per Day (ICD-10-PCS; 2024-08-08)
PROC: 5A1D70Z Performance of Urinary Filtration, Intermittent, Less than 6 Hours Per Day (ICD-10-PCS; 2024-08-11)
PROC: 02HV33Z Insertion of Infusion Device into Superior Vena Cava, Percutaneous Approach (ICD-10-PCS; 2024-08-11)
PROC: B548ZZA Ultrasonography of Superior Vena Cava, Guidance (ICD-10-PCS; 2024-08-11)
PROC: B5181ZA Fluoroscopy of Superior Vena Cava using Low Osmolar Contrast, Guidance (ICD-10-PCS; 2024-08-11)
PROC: 5A1D70Z Performance of Urinary Filtration, Intermittent, Less than 6 Hours Per Day (ICD-10-PCS; 2024-08-13)
PROC: 5A1D70Z Performance of Urinary Filtration, Intermittent, Less than 6 Hours Per Day (ICD-10-PCS; 2024-08-15)
PROC: 5A1D70Z Performance of Urinary Filtration, Intermittent, Less than 6 Hours Per Day (ICD-10-PCS; 2024-08-16)
PROC: 5A1D70Z Performance of Urinary Filtration, Intermittent, Less than 6 Hours Per Day (ICD-10-PCS; 2024-08-18)
PROC: 5A1D70Z Performance of Urinary Filtration, Intermittent, Less than 6 Hours Per Day (ICD-10-PCS; 2024-08-20)
PROC: 05PY33Z Removal of Infusion Device from Upper Vein, Percutaneous Approach (ICD-10-PCS; 2024-08-21)
PROC: 05HN33Z Insertion of Infusion Device into Left Internal Jugular Vein, Percutaneous Approach (ICD-10-PCS; 2024-08-25)
PROC: B5141ZA Fluoroscopy of Left Jugular Veins using Low Osmolar Contrast, Guidance (ICD-10-PCS; 2024-08-25)
PROC: B544ZZA Ultrasonography of Left Jugular Veins, Guidance (ICD-10-PCS; 2024-08-25)
PROC: 5A1D70Z Performance of Urinary Filtration, Intermittent, Less than 6 Hours Per Day (ICD-10-PCS; 2024-08-26)
PROC: 5A1D70Z Performance of Urinary Filtration, Intermittent, Less than 6 Hours Per Day (ICD-10-PCS; 2024-08-28)
PROC: 5A1D70Z Performance of Urinary Filtration, Intermittent, Less than 6 Hours Per Day (ICD-10-PCS; 2024-09-01)
PROC: 5A1D70Z Performance of Urinary Filtration, Intermittent, Less than 6 Hours Per Day (ICD-10-PCS; 2024-09-03)
PROC: 5A1D70Z Performance of Urinary Filtration, Intermittent, Less than 6 Hours Per Day (ICD-10-PCS; 2024-09-05)
PROC: 5A1D70Z Performance of Urinary Filtration, Intermittent, Less than 6 Hours Per Day (ICD-10-PCS; 2024-09-07)
PROC: 30233N1 Transfusion of Nonautologous Red Blood Cells into Peripheral Vein, Percutaneous Approach (ICD-10-PCS; 2024-09-08)
PROC: 5A1D70Z Performance of Urinary Filtration, Intermittent, Less than 6 Hours Per Day (ICD-10-PCS; 2024-09-09)
PROC: 5A1D70Z Performance of Urinary Filtration, Intermittent, Less than 6 Hours Per Day (ICD-10-PCS; 2024-09-12)
PROC: 5A1D70Z Performance of Urinary Filtration, Intermittent, Less than 6 Hours Per Day (ICD-10-PCS; 2024-09-15)
PROC: 5A1D70Z Performance of Urinary Filtration, Intermittent, Less than 6 Hours Per Day (ICD-10-PCS; 2024-09-18)
PROC: 5A1D70Z Performance of Urinary Filtration, Intermittent, Less than 6 Hours Per Day (ICD-10-PCS; 2024-09-19)
PROC: 5A1D70Z Performance of Urinary Filtration, Intermittent, Less than 6 Hours Per Day (ICD-10-PCS; 2024-09-22)
PROC: 02HV33Z Insertion of Infusion Device into Superior Vena Cava, Percutaneous Approach (ICD-10-PCS; 2024-09-22)
PROC: B548ZZA Ultrasonography of Superior Vena Cava, Guidance (ICD-10-PCS; 2024-09-22)
PROC: B5181ZA Fluoroscopy of Superior Vena Cava using Low Osmolar Contrast, Guidance (ICD-10-PCS; 2024-09-22)
PROC: 5A1D70Z Performance of Urinary Filtration, Intermittent, Less than 6 Hours Per Day (ICD-10-PCS; 2024-09-24)
PROC: 5A1D70Z Performance of Urinary Filtration, Intermittent, Less than 6 Hours Per Day (ICD-10-PCS; 2024-09-25)
PROC: 5A1D70Z Performance of Urinary Filtration, Intermittent, Less than 6 Hours Per Day (ICD-10-PCS; 2024-09-27)
PROC: 5A1D70Z Performance of Urinary Filtration, Intermittent, Less than 6 Hours Per Day (ICD-10-PCS; 2024-09-29)
PROC: 5A1D70Z Performance of Urinary Filtration, Intermittent, Less than 6 Hours Per Day (ICD-10-PCS; 2024-10-01)
PROC: 5A1D70Z Performance of Urinary Filtration, Intermittent, Less than 6 Hours Per Day (ICD-10-PCS; 2024-10-03)
PROC: 5A1D70Z Performance of Urinary Filtration, Intermittent, Less than 6 Hours Per Day (ICD-10-PCS; 2024-10-05)
PROC: 5A1D70Z Performance of Urinary Filtration, Intermittent, Less than 6 Hours Per Day (ICD-10-PCS; 2024-10-07)
PROC: 5A1D70Z Performance of Urinary Filtration, Intermittent, Less than 6 Hours Per Day (ICD-10-PCS; 2024-10-09)
PROC: 5A1D70Z Performance of Urinary Filtration, Intermittent, Less than 6 Hours Per Day (ICD-10-PCS; 2024-10-10)
PROC: 5A1D70Z Performance of Urinary Filtration, Intermittent, Less than 6 Hours Per Day (ICD-10-PCS; 2024-10-12)
PROC: 5A1D70Z Performance of Urinary Filtration, Intermittent, Less than 6 Hours Per Day (ICD-10-PCS; 2024-10-14)
PROC: 5A1D70Z Performance of Urinary Filtration, Intermittent, Less than 6 Hours Per Day (ICD-10-PCS; 2024-10-15)
PROC: 5A1D70Z Performance of Urinary Filtration, Intermittent, Less than 6 Hours Per Day (ICD-10-PCS; 2024-10-17)
PROC: 5A1D70Z Performance of Urinary Filtration, Intermittent, Less than 6 Hours Per Day (ICD-10-PCS; 2024-10-19)
PROC: 5A1D70Z Performance of Urinary Filtration, Intermittent, Less than 6 Hours Per Day (ICD-10-PCS; 2024-10-20)
PROC: 5A09357 Assistance with Respiratory Ventilation, Less than 24 Consecutive Hours, Continuous Positive Airway Pressure (ICD-10-PCS; 2024-10-20)
PROC: 5A1D70Z Performance of Urinary Filtration, Intermittent, Less than 6 Hours Per Day (ICD-10-PCS; 2024-10-22)
PROC: 5A09357 Assistance with Respiratory Ventilation, Less than 24 Consecutive Hours, Continuous Positive Airway Pressure (ICD-10-PCS; 2024-10-22)
PROC: 5A1D70Z Performance of Urinary Filtration, Intermittent, Less than 6 Hours Per Day (ICD-10-PCS; 2024-10-24)
PROC: 5A1D70Z Performance of Urinary Filtration, Intermittent, Less than 6 Hours Per Day (ICD-10-PCS; 2024-10-26)
PROC: 5A1D70Z Performance of Urinary Filtration, Intermittent, Less than 6 Hours Per Day (ICD-10-PCS; 2024-10-28)
PROC: 5A1D70Z Performance of Urinary Filtration, Intermittent, Less than 6 Hours Per Day (ICD-10-PCS; 2024-10-30)
PROC: 5A1D70Z Performance of Urinary Filtration, Intermittent, Less than 6 Hours Per Day (ICD-10-PCS; 2024-11-01)
PROC: 5A1D70Z Performance of Urinary Filtration, Intermittent, Less than 6 Hours Per Day (ICD-10-PCS; 2024-11-05)
PROC: 5A1D70Z Performance of Urinary Filtration, Intermittent, Less than 6 Hours Per Day (ICD-10-PCS; 2024-11-07)
PROC: 5A1D70Z Performance of Urinary Filtration, Intermittent, Less than 6 Hours Per Day (ICD-10-PCS; 2024-11-09)
PROC: 5A1D70Z Performance of Urinary Filtration, Intermittent, Less than 6 Hours Per Day (ICD-10-PCS; 2024-11-11)
PROC: 5A1D70Z Performance of Urinary Filtration, Intermittent, Less than 6 Hours Per Day (ICD-10-PCS; 2024-11-13)
PROC: 5A1D70Z Performance of Urinary Filtration, Intermittent, Less than 6 Hours Per Day (ICD-10-PCS; 2024-11-14)
PROC: 5A1D70Z Performance of Urinary Filtration, Intermittent, Less than 6 Hours Per Day (ICD-10-PCS; 2024-11-16)
PROC: 5A1D70Z Performance of Urinary Filtration, Intermittent, Less than 6 Hours Per Day (ICD-10-PCS; 2024-11-18)
PROC: 5A1D70Z Performance of Urinary Filtration, Intermittent, Less than 6 Hours Per Day (ICD-10-PCS; 2024-11-20)
PROC: 5A1D70Z Performance of Urinary Filtration, Intermittent, Less than 6 Hours Per Day (ICD-10-PCS; 2024-11-20)
DX: E87.5 Hyperkalemia (principal); A41.9 Sepsis, unspecified organism; I12.0 Hypertensive chronic kidney disease with stage 5 chronic kidney disease or end stage renal disease; N18.6 End stage renal disease; E88.09 Other disorders of plasma-protein metabolism, not elsewhere classified; D63.1 Anemia in chronic kidney disease; Z20.822 Contact with and (suspected) exposure to COVID-19; E11.22 Type 2 diabetes mellitus with diabetic chronic kidney disease; D64.9 Anemia, unspecified; B19.20 Unspecified viral hepatitis C without hepatic coma; E61.1 Iron deficiency; K76.0 Fatty (change of) liver, not elsewhere classified; R36.1 Hematospermia; R19.5 Other fecal abnormalities; M16.10 Unilateral primary osteoarthritis, unspecified hip; F19.10 Other psychoactive substance abuse, uncomplicated; E87.6 Hypokalemia; F32.9 Major depressive disorder, single episode, unspecified; G47.00 Insomnia, unspecified; F17.210 Nicotine dependence, cigarettes, uncomplicated; Z99.2 Dependence on renal dialysis; Z91.158 Patient's noncompliance with renal dialysis for other reason; Z59.00 Homelessness unspecified; Z91.199 Patient's noncompliance with other medical treatment and regimen due to unspecified reason; Z79.899 Other long term (current) drug therapy
CPT/HCPCS: 36415; 36558; 36573; 36584; 36589; 71045; 71260; 73502; 73552; 74177; 76937; 77001; 80048; 80051; 80053; 80061; 80076; 80202; 81003; 82105; 82270; 82378; 82607; 82728; 82746; 82962; 83540; 83550; 83735; 83880; 84100; 84132; 84145; 84484; 85014; 85018; 85025; 85027; 85044; 86301; 86592; 86705; 86706; 86709; 86850; 86900; 86920; 87070; 87340; 87426; 87591; 87804; 90935; 93005; 93306; 94003; 94070; 94640; 94664; 94760; 97110; 97161; 97166; 97168; 97530; 98960; 99152; 99153; 99285; A4606; C1725; C1750; C1769; C1887; J0610; J0692; J0885; J1642; J1815; J2003; J2250; J2405; J2997; J3010; J3370; J3420; J3490; J7060; P9016; Q0163; Q9967; G0500